=== PATIENT | male | born 1965 | race Caucasian/White ===

== ENCOUNTER 2024-03-31 08:45 | Inpatient (IN) | payer SELFPAY ==
[2024-03-31] VITALS (26 sets, daily range): BP systolic 100–137; BP diastolic 60–87; PULSE 60–96; RESP 11–23; TEMP 36.5–37.1; O2SAT 65–94; BMI 39.1; BMI 42.3
[2024-03-31 09:25] LABS: Coronavirus 19, PCR Not Detected (NotDetected); Influenza A, PCR Not Detected (NotDetected); Influenza B, PCR Not Detected (NotDetected)
[2024-03-31 09:27] LABS: Lactate Venous 1.1 mmol/L (0.4-2.0); VBG Base Excess 11.3 mmol/L (-2.4-2.3); VBG HCO3 36.5 mmol/L (23-30); VBG Oxygen Saturation 61.4 % (50-70); VBG PCO2 62.9 mmol/L (35-51); VBG PH 7.38 mmol/L (7.31-7.41); VBG PO2 30.4 mmol/L (28-40); VBG Total CO2 38.4 mmol/L (23-27)
[2024-03-31 09:31] LABS: Chloride 97 mmol/L (98-107)
[2024-03-31] MEDS: IPRATROPIUM/ALBUTEROL 3 ML NEB IH (09:31)
[2024-03-31 09:32] LABS: Albumin Level 4.1 g/dl (3.5-5.0); Potassium 4.3 mmoL/L (3.5-5.1); Sodium 141 mmol/L (136-145)
[2024-03-31 09:33] LABS: Basophils # 0.1 K/mm3 (0-0.2); Basophils % 0.8 % (0.1-2.0); Eosinophils # 0.2 K/mm3 (0.0-0.4); Eosinophils % 1.8 % (0.1-12.0); Hemoglobin 13.7 g/dL (14.1-18.0); Lymphocytes % 23.3 % (10-50); Mean Corpuscular HGB Conc 31.1 g/dL (31.8-35.4); Mean Corpuscular Hemoglobin 30.5 pg (27.0-31.2); Mean Platelet Volume 10.3 fl (7.4-10.4); Monocytes # 0.9 K/mm3 (0.1-1.0); Monocytes % 11.2 % (1.7-9.3); Neutrophils # 5.2 K/mm3 (1.8-7.8); Neutrophils % 62.5 % (37.0-80.0); Platelet Count 186 K/mm3 (142-424); Red Blood Count 4.49 M/mm3 (4.60-6.20); Red Cell Distribution Width 14.6 % (11.5-17.5); White Blood Count 8.4 K/mm3 (4.8-10.8)
[2024-03-31 09:34] LABS: Blood Urea Nitrogen 21 mg/dl (9-20); Creatinine Clearance Estimated 111 mL/min (50-200); Estimated Glomerular Filt Rate 62 ml/min (>60); GFR (African American) 75 ML/MIN (>60)
[2024-03-31 09:35] LABS: Alanine Aminotransferase 98 U/L (12-78); Albumin/Globulin Ratio 1.2 (1.1-1.8); Alkaline Phosphatase 82 U/L (38-126); Aspartate Amino Transferase 71 U/L (17-59); Bilirubin,Total 0.5 mg/dl (0.2-1.3); Calcium 8.8 mg/dl (8.4-10.2); Globulin 3.3 g/dL (1.3-3.2); Glucose 100 mg/dl (74-100); Total Protein,Serum 7.4 g/dl (6.3-8.2)
--- NOTE | 2024-03-31 09:37 | XR_ITS ---
FINAL REPORT CLINICAL HISTORY: Shortness of breath, hypoxic 87%, wheezing COMPARISON: None FINDINGS: The patient is in lordotic positioning. The heart size is normal. The mediastinum is normal. The lungs are underinflated. There is mild basilar atelectasis. There is no focal infiltrate or edema. There are no pleural effusions. There is no pneumothorax. There is no osseous abnormality. IMPRESSION: Underinflation with mild basilar atelectasis. Reviewed, Interpreted and Dictated by Rony Ochoa MD Transcribed by Cheryl Cruz Authenticated and [facility]
--- NOTE | 2024-03-31 09:37 | PC.NURSE ---
Dr. Herman at bedside
[2024-03-31 09:42] LABS: Anion Gap 11.3 mEq/L (5-15); Carbon Dioxide 37 mmol/L (22.0-30.0)
--- NOTE | 2024-03-31 09:44 | CT_ITS ---
FINAL REPORT TECHNIQUE: Multiple axial CT angiography images were performed from the foramen magnum to the vertex before and during IV contrast administration. This study was performed with techniques to keep radiation doses as low as reasonably achievable (ALARA). Individualized dose reduction techniques using automated exposure control or adjustment of mA and/or kV according to the patient's size were employed. 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 IMPRESSION: No acute intracranial hemorrhage or large acute cortical infarct. No evidence of vascular injury, aneurysm, hemodynamically significant stenosis or major vessel occlusion of the intracranial arterial system. Reviewed, Interpreted and Dictated by Rony Ochoa MD Transcribed by Norma Clayton Authenticated and [facility]
--- NOTE | 2024-03-31 09:44 | CT_ITS ---
FINAL REPORT TECHNIQUE: Axial CT images were performed through the head. Coronal reformatted images were submitted. This study was performed with techniques to keep radiation doses as low as reasonably achievable (ALARA). Individualized dose reduction techniques using automated exposure control or adjustment of mA and/or kV according to the patient's size were employed. CLINICAL HISTORY: resp failure, wheezing, AMS FINDINGS: The ventricles are normal in size. There is no evidence of hemorrhage. There is no mass or edema identified. There is no abnormal extra-axial fluid seen. There is bilateral maxillary sinusitis. Abnormal opacification is seen of the mastoid air cells. There is been prior partial resection of the left mastoid air cells. IMPRESSION: No acute intracranial process. Bilateral maxillary sinusitis and opacification of the mastoid air cells. Reviewed, Interpreted and Dictated by Rony Ochoa MD Transcribed by Norma Clayton Authenticated and [facility]
--- NOTE | 2024-03-31 09:44 | CT_ITS ---
FINAL REPORT TECHNIQUE: Postcontrast axial images of the chest were performed in a CTA protocol. This study was performed with techniques to keep radiation doses as low as reasonably achievable, (ALARA). Individualized dose reduction technique using automated exposure control or adjustment of mA and/or kV according to the patient's size were employed. CLINICAL HISTORY: resp failure, wheezing, AMS FINDINGS: The heart is normal in size. There are multiple small mediastinal lymph nodes measuring up to 1.7 cm. No pleural or pericardial effusion is identified. The thoracic aorta is normal in caliber with no focal aneurysm or dissection identified. Pulmonary arteries are suboptimally opacified. There is no definite filling defect to suggest pulmonary embolism. There is mild dependent edema and atelectasis. And nodule is seen at the superior margin of the left major fissure measuring 9 mm in greatest dimension best seen on image 69 of series 5. IMPRESSION: No evidence for PE on this exam. Dependent edema. Nodule at the left major fissure likely related to fissural lymph node. Reviewed, Interpreted and Dictated by Rony Ochoa MD Transcribed by Norma Clayton Authenticated and [facility]
--- NOTE | 2024-03-31 09:44 | CT_ITS ---
FINAL REPORT TECHNIQUE: NASCET technique utilized for stenosis evaluation. 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 Carotid arteries are codominant. RIGHT CAROTID: No significant stenosis is seen of the cervical common or internal carotid artery. LEFT CAROTID: No significant stenosis seen of the cervical common or internal carotid artery. VERTEBRALS: The vertebrals are patent. No significant stenosis is present. IMPRESSION: No significant arterial abnormality. Reviewed, Interpreted and Dictated by Rony Ochoa MD Transcribed by Norma Clayton Authenticated and [facility]
--- NOTE | 2024-03-31 09:44 | CT_ITS ---
FINAL REPORT TECHNIQUE: Axial images were obtained from skull base to the thoracic inlet by computed tomography. Coronal and sagittal reconstruction process performed. This study was performed with techniques to keep radiation doses as low as reasonably achievable (ALARA). Individualized dose reduction techniques using automated exposure control or adjustment of mA and/or kV according to the patient''s size were employed. 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 There is mild posterior osteophyte formation at C6-7. No significant spinal or neuroforaminal canal stenosis is seen. The disc spaces are preserved. The facets are normally aligned. The soft tissues are unremarkable. IMPRESSION: No acute fracture. Reviewed, Interpreted and Dictated by Rony Ochoa MD Transcribed by Norma Clayton Authenticated and [facility]
[2024-03-31 09:49] LABS: Microscopic, Urine URINE MICROSCOPIC (MICROSCOPIC)
[2024-03-31 10:11] LABS: Ethyl Alcohol < 10 mg/dl (0-10)
[2024-03-31 10:19] LABS: NT Pro Brain Natriuretic Pep. 1070 pg/mL (0-125)
[2024-03-31 10:20] LABS: Appearance,Urine CLEAR (Clear); Bilirubin,Urine Negative (Negative); Blood, Urine Negative (Negative); Color,Urine YELLOW (Yellow); Glucose,Urine (UA) Negative (Negative); Ketones,Urine Negative (Negative); Leukocyte Esterase,Urine Negative (Negative); Nitrate,Urine Negative (Negative); Protein,Urine TRACE (Negative); Specific Gravity, Urine 1.025 (1.005-1.030)
[2024-03-31 10:23] LABS: Troponin I < 0.01 ng/ml (0.00-0.034)
[2024-03-31] MEDS: METHYLPREDNISOLONE SOD SUCC 125MG VIAL 125 MG IV (10:23)
[2024-03-31] MEDS: IPRATROPIUM/ALBUTEROL 3 ML NEB 6 ML IH (10:23)
--- NOTE | 2024-03-31 10:25 | ED_ITS ---
Discharge Plan Disposition Patient Disposition: Admitted Condition: Good Clinical Impressions Clinical Impression: Severe hypothyroidism, Altered mental status, Acute exacerbation of chronic obstructive pulmonary disease Discharge ED Provider: Miriam Herman General Adult HPI General Chief complaint: Shortness of Breath/Dyspnea Stated complaint: disoriented, weakness Time Seen by Provider: 03/31/24 09:00 Mode of Arrival: Family Vehicle Source of Information: Patient and Significant Other Limitations: No Limitations Description of Symptoms (Recalled from ER Triage Doc. by RN): Pt c/o SOA, feeling tired, and cough. He reports he was drinking alcohol and smoking marijuana and has slept all weekend. His SO at bedside states, he didn't even know today was Sunday and he needed to go to work . Pt also states yesterday he was feeling weak and his legs gave out when he was walking tot he bathroom. Pt denies any injury, syncope, or LOC. States he also may have been exsposed to the flu. History of Present Illness HPI narrative: This patient is a 59-year-old male with a history of obesity and prior tobacco use who does not follow regularly with a doctor presenting to the emergency department for disorientation. According to the patient's significant other, they went out Sunday for his birthday and he had been drinking alcohol and smoking some marijuana, but significant other states that it was not a lot. He occasionally does drink and occasionally does smoke marijuana, but he does not have any history of regular or daily abuse. She states that he slept pretty much the whole weekend and had not been eating or drinking very much. She also notes that yesterday, they were sitting down and talking about work today, but he was not even aware that yesterday was Sunday. She states that he is just seemed off and also was having trouble gripping silverware to feed himself. She notes that it was like a child trying to eat and drink. At this time, he denies any concerns or complaints with the exception of having a cough and mild shortness of breath. He denies any fever, headache, vision changes, numbness, tingling, unilateral weakness, chest pain, abdominal pain, nausea, vomiting, changes in bowel movements, urinary symptoms, rashes, or swelling. Related Data Home Medications ?Medication ?Instructions ?Recorded ?Confirmed No Known Home Medications 03/31/24 03/31/24 Allergies Allergy/AdvReac Type Severity Reaction Status Date / Time No Known Allergies Allergy Verified 03/31/24 15:12 [facility] Disclaimer: The information contained in this section may have been updated after the patient was seen, as this information can be updated by other users. Medical History (Updated 03/31/24 @ 16:43 by Yayo Lindquist MD) Hard of hearing No significant past medical history Surgical History History of tonsillectomy and adenoidectomy Family History Other No significant family history Social History Smoking Status: Former smoker alcohol intake: current current occupational status: employed Travel in the last 8 weeks: None ROS Obtained: Yes All systems reviewed & no additional complaints except as documented Physical Exam General General appearance: alert, in no apparent distress and obese Head Head exam: atraumatic and normocephalic Eye Eye exam: Present normal appearance, PERRL and EOMI ENT ENT exam: Present normal exam, normal oropharynx, mucous membranes moist and normal external ear exam Neck Neck exam: Present normal inspection, full ROM and trachea midline; Absent tenderness Chest Chest inspection: Present normal inspection and symmetric chest wall rise; Absent tenderness Respiratory Respiratory exam: Present normal lung sounds bilaterally; Absent respiratory distress, wheezes, stridor or accessory muscle use Cardiovascular Cardiovascular exam: Present regular rate and normal rhythm Abdominal Exam Abdominal exam: Present soft; Absent distention, tenderness or guarding Extremities Exam Extremities exam: Present normal inspection, full ROM and normal capillary refill; Absent tenderness or edema Back Exam Back exam: Present normal inspection and full ROM; Absent tenderness Neurological Exam Neurological exam: Present alert, oriented X3, CN II-XII intact and normal gait; Absent motor sensory deficit Psychiatric Psychiatric exam: Present normal affect and normal mood Skin Skin exam: Present warm and dry Medical Decision Making Medical Records Medical records reviewed: Yes I reviewed the patient's medical records. Screening: Per USPSTF and CDC recommendations, given the prevalence of disease in our region, it is our hospital?s policy to screen for HIV and viral Hepatitis for all patients aged 18 and over and those with ongoing risk factors. Vasu Inquiry Pt receiving controlled substance: No Vital Signs: 03/31/24 08:47 03/31/24 09:30 03/31/24 10:00 Temperature 97.7 F Temperature Source Oral Pulse Rate 63 63 Pulse Rate [Right] 96 H Respiratory Rate 23 Blood Pressure 119/79 116/75 Blood Pressure [Right Arm] 129/78 Blood Pressure Mean Blood Pressure Mean [Right Arm] 95 Blood Pressure Source [Right Arm] Automatic Cuff 02 Sat by Pulse Oximetry 87 L 91 L 93 L Oxygen Delivery Method Room Air Nasal Cannula Nasal Cannula Oxygen Flow Rate (LPM) 2 2 03/31/24 10:32 03/31/24 10:45 03/31/24 11:30 Temperature Temperature Source Pulse Rate 65 67 81 Pulse Rate [Right] Respiratory Rate 15 12 Blood Pressure 100/60 L Blood Pressure [Right Arm] Blood Pressure Mean Blood Pressure Mean [Right Arm] Blood Pressure Source [Right Arm] 02 Sat by Pulse Oximetry 93 L 65 L 94 L Oxygen Delivery Method Aerosol Mask Oxygen Flow Rate (LPM) 03/31/24 12:12 03/31/24 12:31 03/31/24 13:01 Temperature Temperature Source Pulse Rate 70 67 61 Pulse Rate [Right] Respiratory Rate 15 16 12 Blood Pressure 126/71 114/64 124/78 Blood Pressure [Right Arm] Blood Pressure Mean 89 Blood Pressure Mean [Right Arm] Blood Pressure Source [Right Arm] 02 Sat by Pulse Oximetry 91 L 91 L 92 L Oxygen Delivery Method Nasal Cannula Nasal Cannula Oxygen Flow Rate (LPM) 2 2 03/31/24 13:31 03/31/24 14:01 03/31/24 14:31 Temperature Temperature Source Pulse Rate 77 67 62 Pulse Rate [Right] Respiratory Rate 20 14 14 Blood Pressure 131/75 111/86 121/70 Blood Pressure [Right Arm] Blood Pressure Mean Blood Pressure Mean [Right Arm] Blood Pressure Source [Right Arm] 02 Sat by Pulse Oximetry 92 L 91 L 92 L Oxygen Delivery Method Nasal Cannula Nasal Cannula Nasal Cannula Oxygen Flow Rate (LPM) 2 2 2 03/31/24 14:50 03/31/24 14:54 Temperature 98.0 F Temperature Source Pulse Rate 63 62 Pulse Rate [Right] Respiratory Rate 14 Blood Pressure 121/70 Blood Pressure [Right Arm] Blood Pressure Mean Blood Pressure Mean [Right Arm] Blood Pressure Source [Right Arm] 02 Sat by Pulse Oximetry 85 L Oxygen Delivery Method Nasal Cannula Oxygen Flow Rate (LPM) 2 Lab Data Lab results reviewed: Yes I reviewed the patient's lab results. Lab Results 03/31/24 08:53: Urine Color Yellow, Urine Appearance Clear, Urine pH 7.0, Ur Specific [place] 1.025, Urine Protein Trace, Urine Glucose (UA) Negative, Urine Ketones Negative, Urine Blood Negative, Urine Nitrate Negative, Urine Bilirubin Negative, Urine Urobilinogen 1.0, Ur Leukocyte Esterase Negative, Urine RBC Occasional, Urine WBC 3-5, Ur Squamous Epith Cells None, Urine Bacteria Trace, Urine Opiates Screen Negative, Urine Methadone Screen Negative, Ur Barbituates Screen Negative, Ur Phencyclidine Scrn Negative, Ur Amphetamines Screen Negative, U Benzodiazepines Scrn Negative, Urine Cocaine Screen Negative, U Marijuana (THC) Screen Positive H 03/31/24 09:00: WBC 8.4, RBC 4.49 L, Hgb 13.7 L, Hct 44.0, MCV 98.0 H, MCH 30.5, MCHC 31.1 L, RDW 14.6, Plt Count 186, MPV 10.3, Neut % (Auto) 62.5, Lymph % (Auto) 23.3, [place] % (Auto) 11.2 H, Eos % (Auto) 1.8, Baso % (Auto) 0.8, Neut # (Auto) 5.2, Lymph # (Auto) 2.0, [place] # (Auto) 0.9, Eos # (Auto) 0.2, Baso # (Auto) 0.1, VBG pH 7.38, VBG pCO2 62.9 H, VBG pO2 30.4, VBG HCO3 36.5 H, VBG Total CO2 38.4 H, VBG O2 Saturation 61.4, VBG Base Excess 11.3 H, VBG Lactic Acid 1.1, Sodium 141, Potassium 4.3, Chloride 97 L, Carbon Dioxide 37 H, Anion Gap 11.3, BUN 21 H, Creatinine 1.20, Estimated Creat Clear 111, Estimated GFR 62, Est GFR ( Amer) 75, Glucose 100, Calcium 8.8, Total Bilirubin 0.5, A ST 71 H, ALT 98 H, Alkaline Phosphatase 82, Troponin I < 0.01, C-Reactive Protein 106.3 H, NT-Pro-B Natriuret Pep 1070 H, Total Protein 7.4, Albumin 4.1, Globulin 3.3 H, Albumin/Globulin Ratio 1.2, Procalcitonin 0.096, TSH > 100.00 H, Thyroxine (T4) 1.2 L, Plasma/Serum Alcohol < 10, SARS-CoV-2 (PCR) Not detected, HCV Ab ARGENIS w/Rflx PCR Qn Negative, HIV Ag/Ab Combo Qual Negative, Influenza A Untype (PCR) Not detected, Influenza Type B (PCR) Not detected 03/31/24 11:45: Ammonia < 9 L 03/31/24 09:00 03/31/24 09:00 Orders (Tests/Meds): ED MEDICATIONS Generic Name Dose Route Start Last Admin Trade Name Freq PRN Reason Stop Dose Admin Docusate Sodium 100 mg 03/31/24 11:30 03/31/24 12:42 Docusate Sodium 100 Mg Capsule PO 04/30/24 11:29 100 mg DAILY HOLLY Administration Enoxaparin Sodium 40 mg 03/31/24 11:30 03/31/24 12:43 Enoxaparin 40mg/0.4ml Syringe SUBCUT 04/30/24 11:29 40 mg DAILY HOLLY Administration Levothyroxine Sodium 150 mcg 04/01/24 07:00 Levothyroxine Sodium 100 Mcg Vial IV 05/01/24 06:59 DAILYDM HOLLY Non-Formulary Medication 5 mcg 03/31/24 16:45 Liothy PO 04/30/24 16:44 DIRECTED HOLLY Sodium Chloride 10 ml 03/31/24 09:20 Sodium Chloride 0.9% 10ml Flush Syringe IV 04/30/24 09:19 NEEDED PRN Maintain IV Site Discontinued Medications Generic Name Dose Route Start Last Admin Trade Name Freq PRN Reason Stop Dose Admin Albuterol/Ipratropium 3 ml 03/31/24 09:21 03/31/24 09:31 Ipratropium/Albuterol 3 Ml Neb 03/31/24 09:22 3 ml ONCE ONE Administration Albuterol/Ipratropium 6 ml 03/31/24 09:49 03/31/24 10:23 Ipratropium/Albuterol 3 Ml Neb IH 03/31/24 09:50 6 ml ONCE ONE Administration Furosemide 40 mg 03/31/24 15:31 03/31/24 15:48 Furosemide 40mg/4ml Vial IV 03/31/24 15:32 40 mg ONCE ONE Administration Iopamidol 80 ml 03/31/24 11:11 03/31/24 11:14 Iopamidol-370 (76%);100ml Bottle IV 03/31/24 11:12 80 ml ONCE ONE Administration Iopamidol 60 ml 03/31/24 11:12 03/31/24 11:14 Iopamidol-370 (76%);100ml Bottle IV 03/31/24 11:13 60 ml ONCE ONE Administration Levothyroxine Sodium 300 mcg 03/31/24 10:51 03/31/24 11:12 Levothyroxine Sodium 100 Mcg Vial IV 03/31/24 10:52 300 mcg ONCE ONE Administration Methylprednisolone Sodium Succinate 125 mg 03/31/24 09:49 03/31/24 10:23 Methylprednisolone Sod Succ 125mg Vial IV 03/31/24 09:50 125 mg ONCE ONE Administration Sodium Chloride 50 ml 03/31/24 11:11 03/31/24 11:14 0.9 % Sodium Chloride 50 Ml Vial IV 03/31/24 11:12 50 ml ONCE ONE Administration Sodium Chloride 10 ml 03/31/24 11:11 03/31/24 11:14 Sodium Chloride 0.9% 10ml Syr (Rad Only) IV 03/31/24 11:12 10 ml ONCE ONE Administration Sodium Chloride 10 ml 03/31/24 11:12 03/31/24 11:14 Sodium Chloride 0.9% 10ml Syr (Rad Only) IV 04/30/24 11:11 10 ml NEEDED PRN Administration Maintain IV Site ORDERS Category Date Time Status CT angio chest PE protocol Stat Cat Scan 03/31/24 09:[address] angio head Stat Cat Scan 03/31/24 09:[address] angio neck Stat Cat Scan 03/31/24 09:[address] cervical spine wo con Stat Cat Scan 03/31/24 09:[address] head/brain wo con Stat Cat Scan 03/31/24 09:44 Completed CXR --portable [XR chest portable] Stat Exams 03/31/24 09:37 Completed Ammonia Stat Lab 03/31/24 11:45 Completed BNP [NT Pro Brain Natriuretic Pep.] Stat Lab 03/31/24 09:00 Completed CRP [C-Reactive Protein] Stat Lab 03/31/24 09:00 Completed Complete Blood Count Auto Diff AMLAB Lab 04/01/24 06:00 Ordered Complete Blood Count Auto Diff Stat Lab 03/31/24 09:00 Completed Comprehensive Metabolic Panel AMLAB Lab 04/01/24 06:00 Ordered Comprehensive Metabolic Panel Stat Lab 03/31/24 09:00 Completed Ethyl Alcohol Stat Lab 03/31/24 09:00 Completed HIV Combo Stat Lab 03/31/24 09:00 Completed Hepatitis C Ab Qual. W/ RFX Stat Lab 03/31/24 09:00 Completed Magnesium AMLAB Lab 04/01/24 06:00 Ordered Procalcitonin Stat Lab 03/31/24 09:00 Completed Rapid PCR Covid and Flu A/B Stat Lab 03/31/24 09:00 Completed T4 (Thyroxine) Stat Lab 03/31/24 09:00 Completed TSH [Thyroid Stimulating Hormone] Stat Lab 03/31/24 09:00 Completed Triiodothyronine (T3) Free Stat Lab 03/31/24 09:00 Received Triiodothyronine (T3) Total Stat Lab 03/31/24 09:00 Received Trop I [Troponin I] Stat Lab 03/31/24 09:00 Completed Troponin I Q3H Lab 03/31/24 13:20 Completed Troponin I Q3H Lab 03/31/24 15:23 Completed UA [Urinalysis and Microscopic] Stat Lab 03/31/24 08:53 Completed UDS [Drug Screen,Urine] Stat Lab 03/31/24 08:53 Completed Venous Blood Gas Stat RT 03/31/24 09:00 Completed ECG Data Tracing #1: I reviewed this ECG and interpreted as documented below: Normal sinus rhythm with a ventricular rate of [address] changes concerning for ischemia. Normal intervals ECG initial impression date: 03/31/24 ECG initial impression time: 10:48 Medical Decision Narrative: In summary, this patient is a 59-year-old male presenting to the Emergency Department for evaluation of disorientation, excess sleepiness, and cough over the weekend. Differential diagnoses considered include but are not limited to pneumonia, COPD exacerbation, respiratory failure, sepsis, urinary tract infection, substance abuse, substance withdrawal, hepatic encephalopathy, CVA, viral syndrome. Ruling out the most morbid conditions drove assessment. It should be noted patient's history includes obesity, alcohol and marijuana use, prior tobacco use which may or may not be at goal therapy. This complicates all aspects of care by increasing patient's risk for morbidity. On exam, the patient is lying in bed in no acute distress. He did have borderline low oxygen saturation as well as a hacking cough noted. He had wheezing noted bilaterally. He is neurologically intact without focal deficit and is able to answer orientation questions appropriately. He is slow to respond. NIH stroke scale is 0. Workup included broad lab evaluation to evaluate for infectious, metabolic, cardiac causes of any sort of mental status change as well as CT head, CT angiogram head and neck, and CT angiogram PE protocol given respiratory failure and cough. He was given DuoNebs x 3 as well as IV methylprednisolone. I independently interpreted CT scan prior to the radiologist read and noted no obvious large brain bleed, no focal lung consolidation. Please see their read for final interpretation. They note no acute pathology. Labs were obtained that demonstrated reassuring CBC with no significant leukocytosis, very mild anemia this not clinically concerning at this time. Chemistry demonstrates mild hypochloremia, mildly elevated BUN, mild transaminitis. VBG demonstrates CO2 retention without decompensation. He has profound hypothyroidism with a TSH greater than 100 and low T4. On reassessment, patient is sitting upright in no acute distress. For his severe hypothyroidism with concerns for myxedema coma, I did give him 300 mcg of IV levothyroxine. He already received methylprednisolone so I did not give hydrocortisone. He is borderline bradycardic with soft pressures, however he does not require any pressors at this time and is in no acute distress. Ultimately, I feel he would benefit from admission for thyroid repletion in the setting of severe hypothyroidism. I had an interactive discussion with the hospitalist who admitted the patient in stable condition. Critical Care Critical Care Time Critical Care Time: Yes Attestation: On 03/31/24, the high probability of a clinically significant, sudden or life threatening deterioration of the following system(s) required my full and direct attention, intervention and personal management. The time I documented below is in addition to time spent performing reported procedures but includes the following listed in this critical care notation. Total Time Total Critical Care Time: 30
[2024-03-31 10:26] LABS: T4 (Thyroxine) 1.2 ug/dl (5.53-11.0)
[2024-03-31 10:31] LABS: Amphetamine/Metha Screen,Urine Negative ng/ml (<1000); Benzodiazepines Screen,Urine Negative ng/ml (<200)
[2024-03-31 10:32] LABS: Barbiturates Screen,Urine Negative ng/ml (<200)
[2024-03-31 10:33] LABS: Cannabinoid Screen,Urine Positive ng/ml (<50); Cocaine Screen,Urine Negative ng/ml (<300)
[2024-03-31 10:34] LABS: Methadone Screen,Urine Negative ng/ml (<300)
[2024-03-31 10:38] LABS: Opiate Screen,Urine Negative ng/ml (<300); Phencyclidine Screen,Urine Negative ng/ml (<25)
--- NOTE | 2024-03-31 10:45 | ECG_ITS ---
APPROVED REPORT Exam: Resting ECG HR:73 bpm ECG Measurements Heart Rate 73 AXES MD 160 P 55 QRSd 106 QRS 78 QT 414 T 63 QTc 439 Conclusion SINUS RHYTHM WITH SINUS ARRHYTHMIA NONSPECIFIC T-WAVE ABNORMALITY BORDERLINE ECG Electronically signed by : FRANKLIN ALBA, 03/31/2024 17:09:42
[2024-03-31 10:46] LABS: Thyroid Stimulating Hormone > 100.00 uIU/mL (0.465-4.68)
[2024-03-31 10:56] LABS: Bacteria,Urine Trace /lpf; RBC,Urine Occasional #/hpf (0-3)
[2024-03-31] MEDS: LEVOTHYROXINE SODIUM 100 MCG VIAL 300 MCG IV (11:12)
[2024-03-31] MEDS: 0.9 % SODIUM CHLORIDE 50 ML VIAL IV (11:14)
[2024-03-31] MEDS: IOPAMIDOL-370 (76%);100ML BOTTLE 60 ML IV (11:14)
[2024-03-31] MEDS: IOPAMIDOL-370 (76%);100ML BOTTLE 80 ML IV (11:14)
[2024-03-31] MEDS: SODIUM CHLORIDE 0.9% 10ML SYR (RAD ONLY) 10 ML IV ×2 (11:14)
--- NOTE | 2024-03-31 11:24 | EXP.HP ---
History of Present Illness *Admission Date: 03/31/24 *Reason for visit:: Weakness, confusion *History of present illness: Lulu is a 59-year-old male with no significant past medical history. Presented to the ER with complaint of being fatigued all weekend. Sounds like he was celebrating his birthday and was drinking alcohol and smoking marijuana. Slept for more than usual however. Was confused, did not know the day of the week. Extremely weak per her spouse. States he has been more tired over the past month. Denies any betsy syncope, loss of consciousness, nausea or vomiting. On arrival to the ER, negative for fever. Denies any chest pain. Does have oxygen requirement however. Workup showing severe hypothyroid. Medicine consulted for admission and further management. On my evaluation, patient is pleasant and states he feels little better since receiving IV levothyroxine. Tolerating 4 L nasal cannula oxygen at this time to maintain sats in the low 90s. Answering questions slowly but appropriately. Denies any rash, lower extremity edema, GI symptoms, constipation, states he does not see a doctor regularly and is on no medications at this time.. [facility] Disclaimer: The information contained in this section may have been updated after the patient was seen, as this information can be updated by other users. Medical History (Updated 03/31/24 @ 16:43 by Yayo Lindquist MD) Hard of hearing No significant past medical history Surgical History History of tonsillectomy and adenoidectomy Family History Other No significant family history Social History Smoking Status: Former smoker alcohol intake: current current occupational status: employed Travel in the last 8 weeks: None Review of Systems Review of Systems Review of systems (narrative): 14 point review of systems performed, pertinent positives and negatives as per HPI Meds Home Medications and Allergies Home Medications ?Medication ?Instructions ?Recorded ?Confirmed ?Type No Known Home Medications 03/31/24 03/31/24 History New Prescriptions to Start Prescriptions: Allergies Allergy/AdvReac Type Severity Reaction Status Date / Time No Known Allergies Allergy Verified 03/31/24 15:12 Exam Data for Last 24 hours Vital signs and Labs for Last 24 Hours: Temp Pulse Resp BP Pulse Ox O2 Del Method O2 Flow Rate 97.7 F 65 23 100/60 L 93 L Aerosol Mask 2 03/31/24 08:47 03/31/24 10:32 03/31/24 08:47 03/31/24 10:32 03/31/24 10:32 03/31/24 10:32 03/31/24 10:00 Laboratory Results - last 24 hr 03/31/24 08:53: Urine Color Yellow, Urine Appearance Clear, Urine pH 7.0, Ur Specific [place] 1.025, Urine Protein Trace, Urine Glucose (UA) Negative, Urine Ketones Negative, Urine Blood Negative, Urine Nitrate Negative, Urine Bilirubin Negative, Urine Urobilinogen 1.0, Ur Leukocyte Esterase Negative, Urine RBC Occasional, Urine WBC 3-5, Ur Squamous Epith Cells None, Urine Bacteria Trace, Urine Opiates Screen Negative, Urine Methadone Screen Negative, Ur Barbituates Screen Negative, Ur Phencyclidine Scrn Negative, Ur Amphetamines Screen Negative, U Benzodiazepines Scrn Negative, Urine Cocaine Screen Negative, U Marijuana (THC) Screen Positive H 03/31/24 09:00: WBC 8.4, RBC 4.49 L, Hgb 13.7 L, Hct 44.0, MCV 98.0 H, MCH 30.5, MCHC 31.1 L, RDW 14.6, Plt Count 186, MPV 10.3, Neut % (Auto) 62.5, Lymph % (Auto) 23.3, [place] % (Auto) 11.2 H, Eos % (Auto) 1.8, Baso % (Auto) 0.8, Neut # (Auto) 5.2, Lymph # (Auto) 2.0, [place] # (Auto) 0.9, Eos # (Auto) 0.2, Baso # (Auto) 0.1, VBG pH 7.38, VBG pCO2 62.9 H, VBG pO2 30.4, VBG HCO3 36.5 H, VBG Total CO2 38.4 H, VBG O2 Saturation 61.4, VBG Base Excess 11.3 H, VBG Lactic Acid 1.1, Sodium 141, Potassium 4.3, Chloride 97 L, Carbon Dioxide 37 H, Anion Gap 11.3, BUN 21 H, Creatinine 1.20, Estimated Creat Clear 111, Estimated GFR 62, Est GFR ( Amer) 75, Glucose 100, Calcium 8.8, Total Bilirubin 0.5, AST 71 H, ALT 98 H, Alkaline Phosphatase 82, Troponin I < 0.01, NT-Pro-B Natriuret Pep 1070 H, Total Protein 7.4, Albumin 4.1, Globulin 3.3 H, Albumin/Globulin Ratio 1.2, TSH > 100.00 H, Thyroxine (T4) 1.2 L, Plasma/Serum Alcohol < 10, SARS-CoV-2 (PCR) Not detected, Influenza A Untype (PCR) Not detected, Influenza Type B (PCR) Not detected I & O for Last 24 hours: Intake & Output 03/28/24 03/29/24 03/30/24 03/31/24 23:59 23:59 23:59 23:59 Weight 120.202 kg Constitutional Constitutional: no acute distress, morbidly obese, chronically ill appearing and cooperative Comments: Speech slow but alert and oriented x 3 *Routine HEENT Exam Head: Present normocephalic Eye: Present EOMI and PERRL ENT: Present mucous membranes moist *Routine Neck Exam Neck: Present supple; Absent lymphadenopathy *Routine Respiratory Exam Respiratory: Present CTA bilaterally; Absent respiratory distress, rhonchi, wheezes or crackles *Routine Cardiovascular Exam Cardiovascular: Present RRR *Routine Abdominal Exam Abdominal: Present soft and normoactive bowel sounds; Absent tenderness *Routine Rectal Exam Rectal:: deferred *Routine Genitalia Exam Genitalia:: deferred *Routine Extremities Exam Extremities: Absent cyanosis, clubbing or edema *Routine Skin Exam Skin: Present warm; Absent rash *Routine Neurological Exam Neurological: Present alert, oriented X3 and moving all extremities; Absent altered mental status Comments: Patient is fatigued, mildly confused, feeling better since presentation to the ER. Knows who he is and where he is. Does not have a good recollection of history. Assessment and Plan *Assessment and plan (1) Severe hypothyroidism: Status: Acute Category: Medical Code(s): E03.9 - Hypothyroidism, unspecified (2) Altered mental status: Status: Acute Category: Medical Code(s): R41.82 - Altered mental status, unspecified (3) Acute metabolic encephalopathy: Status: Acute Category: Medical Code(s): G93.41 - Metabolic encephalopathy (4) Acute exacerbation of chronic obstructive pulmonary disease: Status: Acute Category: Medical Code(s): J44.1 - Chronic obstructive pulmonary disease with (acute) exacerbation (5) CHF (congestive heart failure): Status: Acute Category: Medical Code(s): I50.9 - Heart failure, unspecified (6) Morbid obesity with BMI of 40.0-44.9, adult: Status: Chronic Category: Medical Code(s): E66.01 - Morbid (severe) obesity due to excess calories; Z68.41 - Body mass index [BMI] 40.0-44.9, adult Plan Mr. Vasquez is a 59-year-old male who presented with confusion and weakness, reports that he slept all weekend. Workup in the ER with confusion and TSH greater than 100. Appears to have severe hypothyroidism. Not quite myxedema as he is maintaining blood pressure, electrolytes are normal, maintaining body temperature. High risk for decompensation however. Discussed case with ER physician, request admission for aggressive management and thyroid hormone replacement along with further workup. I agreed to admit for further care. Admitted to ICU due to risk for decompensation. Problems addressed as follows: Hypothyroid Metabolic encephalopathy -TSH greater than 100, BNP of thousand, liver enzymes normal with bili 0.5, AST and ALT 71 and 98 respectively. Glucose 100. Maintaining body temperature. Normotensive. No signs of anemia with hemoglobin of 13.7. Patient does have unexplained oxygen requirement concerning for CHF versus COPD exacerbation. -Administered Solu-Medrol in the ER. Will hold on further steroids. -Administered 300 mcg IV levothyroxine -Administer liothyronine. Pharmacy ordering. Will administer 20 mcg p.o. once followed by 5 mcg every 8 hours for 3 days until mentation improving. -Free T41.4. Free T3 pending -Slow mentation and confusion likely due to hypothyroid. Patient sleeping excessively. Ammonia level normal. Troponins negative. -Thyroid antibodies pending, ordered anti-TPA and dkpa-qcaputw-ojaocaepyua hormone -A1c pending to evaluate for metabolic disease -Repeat CBC, CMP, magnesium ordered for the morning. - High risk for decompensation. - Thyroid ultrasound obtained showing atrophic thyroid gland. - Per my review of chest imaging, patient has no PE on CTA but does have edema. Given elevated BNP, will order echo. Unexplained oxygen requirement. Patient does have very thick skin on his hands and dark staining due to pain from work. Concerned that it is a poor monitoring. Wean oxygen as tolerated for goal sats greater than 90%. Diuresed x 1 with Lasix 40 mg IV. Further management pending echo results Morbid obesity complicates all aspects of his care Full code Regular diet Lovenox 40 mg subcu daily
--- NOTE | 2024-03-31 12:29 | PC.NURSE ---
Received report from Loree Thompson RN at this time. Room is not available at this time, will call when we are able to bring pt up to floor.
--- NOTE | 2024-03-31 12:33 | PC.NURSE ---
Gave report to Guadalupe Shaw RN in SCU. The room is not ready at this time, but SCU staff will let us know when room is ready & clean
[2024-03-31] MEDS: DOCUSATE SODIUM 100 MG CAPSULE PO (12:42)
[2024-03-31] MEDS: ENOXAPARIN 40MG/0.4ML SYRINGE 40 MG SUBCUT (12:43)
[2024-03-31 12:46] LABS: Ammonia < 9 umol/L (9-30)
[2024-03-31 13:19] LABS: C-Reactive Protein 106.3 mg/L (0-4)
[2024-03-31 13:37] LABS: Procalcitonin 0.096 ng/mL (0.0-2.0)
[2024-03-31 13:40] LABS: HIV Combo NEGATIVE (Negative)
[2024-03-31 13:48] LABS: Hepatitis C Ab Qual. W/ RFX NEGATIVE (Negative)
[2024-03-31 14:55] LABS: Troponin I < 0.01 ng/ml (0.00-0.034)
--- NOTE | 2024-03-31 15:18 | CA_ITS ---
APPROVED REPORT EXAM: Comprehensive 2D, Doppler, and color-flow Echocardiogram Engineering Scientist: Kate Velázquez CRT Ht: 5 ft 9 in Wt: 265lbs BSA: 2.33 BP: 100/60 mmHg Indications: COPD, Obesity, alcohol use and marijuana use, hypothyroidism 2D Dimensions LA Volume 27.90 mL LA Volume Index 11.70 mL/m2 (M/F) 16-34 M-Mode Dimensions RVDd 2.77 cm (0.9-2.6) LA Diam 3.95 cm (1.9-4.0) LVDd 4.47 cm (3.5-5.7) LVDs 2.42 cm (3.5-5.7) IVSd 1.59 cm (0.6-1.1) PWd 0.95 cm (0.6-1.1) EF (Teich) 77.40% FS 45.90% EDV (Teich) 91.00 mL TAPSE 2.15 (<1.7) ESV (Teich) 20.60 mL LV Diastology E Decel Time 150 (160-240 msec) E/A Ratio 1.15 MED A' 13.60 cm/s LAT A' 8.30 cm/s Aortic Valve AO Peak GR. 4.20 mmHg Mitral Valve MV E Max Barrett. 73.0 (40-130 cm/s) MV A Velocity 64.0 (40-130 cm/s) E/A Ratio 1.15 MV PHT 44.0 ms Pulmonary Valve PV Peak Velocity 93.0 (50-150 cm/s) Tricuspid Valve TR P. Velocity 195.00 cm/s RAP Estimate 10.00 mmHg RVSP 25.20 mmHg Left Ventricle The left ventricle is normal size. The left ventricular systolic function is normal. The left ventricular ejection fraction is within the normal range. There is normal left ventricular wall thickness. There is normal LV segmental wall motion. The left ventricular diastolic function is normal. LVEF is 55%. Right Ventricle Right ventricle is mildly dilated. The right ventricular systolic function is normal. Atria The left atrium is mildly dilated. The right atrium size is normal. There is no color Doppler evidence of interatrial shunt. Aortic Valve The aortic valve is mildly thickened. There is no aortic valvular stenosis. Trace aortic regurgitation. Mitral Valve The mitral valve is mildly thickened. No evidence of mitral valve stenosis. Trace mitral regurgitation. Tricuspid Valve Tricuspid valve is grossly normal in structure and function. Trace tricuspid regurgitation. There is insufficient TR jet to estimate RVSP. Pulmonic Valve The pulmonary valve is normal in structure. Trace pulmonic regurgitation. Great Vessels The aortic root is normal in size. The ascending aorta is not well-visualized. IVC is normal in size and collapses >50% with inspiration. Pericardium There is no pericardial effusion. Other Information Study Quality: Fair Conclusion Normal biventricular systolic function. Mild RV dilation. Mild LA dilation. No significant valvular stenosis or regurgitation Electronically signed by : Sharmila Artis MD 04/01/2024 10:23:15
--- NOTE | 2024-03-31 15:31 | US_ITS ---
PROCEDURE INFORMATION: Exam: US Soft Tissue Head and Neck, Thyroid Exam date and time: 03/31/2024 3:43 PM Age: 59 years old Clinical indication: Condition or disease; Thyroid disorder; Other: Hypothyroidism; Additional info: Myxedema, hypothyroid TECHNIQUE: Imaging protocol: Real-time ultrasound scan of the neck with image documentation. Exam focused on the thyroid. COMPARISON: CT ANGIO NECK 03/31/2024 10:59 AM FINDINGS: Right thyroid lobe: Atrophic and multinodular with diffusely heterogeneous echotexture. No discrete nodules. No hyperemia. Left thyroid lobe: Atrophic and multinodular with diffusely heterogeneous echotexture. No discrete nodules. No hyperemia. Isthmus: Unremarkable. IMPRESSION: Atrophic thyroid gland.
[2024-03-31] MEDS: FUROSEMIDE 40MG/4ML VIAL 40 MG IV (15:48)
[2024-03-31 16:07] LABS: Troponin I < 0.01 ng/ml (0.00-0.034)
[2024-04-01] VITALS (45 sets, daily range): BP systolic 103–139; BP diastolic 52–88; PULSE 55–85; RESP 9–21; TEMP 36.4–36.7; O2SAT 88–99; BMI 42.1
--- NOTE | 2024-04-01 00:22 | PC.NURSE ---
With with frequent desats into 70% while currently on 5LNC. Apnea and snoring noted. Call made to provider, new order received for CPAP while patient sleeping. Respiratory notified. Pt agreeable to cpap, and tolerating well at this time.
[2024-04-01 06:49] LABS: Basophils % 0.5 % (0.1-2.0); Eosinophils % 0.1 % (0.1-12.0); Hemoglobin 13.5 g/dL (14.1-18.0); Lymphocytes # 2.1 K/mm3 (0.7-4.5); Lymphocytes % 25.6 % (10-50); Mean Corpuscular HGB Conc 32.1 g/dL (31.8-35.4); Mean Corpuscular Hemoglobin 30.9 pg (27.0-31.2); Mean Corpuscular Volume 96.1 fl (80-94); Mean Platelet Volume 10.4 fl (7.4-10.4); Monocytes # 0.8 K/mm3 (0.1-1.0); Neutrophils # 5.1 K/mm3 (1.8-7.8); Neutrophils % 62.6 % (37.0-80.0); Platelet Count 190 K/mm3 (142-424); Red Blood Count 4.37 M/mm3 (4.60-6.20); Red Cell Distribution Width 14.7 % (11.5-17.5); White Blood Count 8.1 K/mm3 (4.8-10.8)
[2024-04-01 07:04] LABS: Alanine Aminotransferase 77 U/L (12-78); Albumin Level 3.9 g/dl (3.5-5.0); Albumin/Globulin Ratio 1.2 (1.1-1.8); Alkaline Phosphatase 80 U/L (38-126); Anion Gap 9.1 mEq/L (5-15); Aspartate Amino Transferase 50 U/L (17-59); Bilirubin,Total 0.3 mg/dl (0.2-1.3); Blood Urea Nitrogen 23 mg/dl (9-20); Calcium 8.6 mg/dl (8.4-10.2); Carbon Dioxide 40 mmol/L (22.0-30.0); Chloride 94 mmol/L (98-107); Creatinine Clearance Estimated 63 mL/min (50-200); Estimated Glomerular Filt Rate 62 ml/min (>60); GFR (African American) 75 ML/MIN (>60); Globulin 3.2 g/dL (1.3-3.2); Glucose 110 mg/dl (74-100); Magnesium 2.1 mg/dl (1.6-2.3); Potassium 4.1 mmoL/L (3.5-5.1); Sodium 139 mmol/L (136-145); Total Protein,Serum 7.1 g/dl (6.3-8.2)
[2024-04-01] MEDS: LEVOTHYROXINE SODIUM 100 MCG VIAL 150 MCG IV (07:07)
[2024-04-01 08:12] LABS: POC Glucose,Bedside 102 (70-110)
[2024-04-01 08:12] LABS: POC Glucose,Bedside 134 (70-110)
[2024-04-01 08:12] LABS: POC Glucose,Bedside 156 (70-110)
--- NOTE | 2024-04-01 08:24 | P.PN_ITS ---
Subjective *Date: 04/01/24 *Time: 10:28 Interval history: Patient denies any chest pain. Denies feeling short of breath however he is on 5 L on initial rounds. Pulse ox placed on here and had instant improvement in saturations. Weaned to 2 L while on rounds with stability and saturations in the low 90s. Has minimal cough. Wheeze on exam. No nausea or vomiting. Tolerating p.o. intake. Alert and oriented x 3. Some improvement mentation today compared to yesterday on presentation. Wore CPAP overnight due to sleep apnea. Medical Exam Vital signs and Labs for Last 24 Hours: Vital Signs Temp Pulse Pulse Resp BP BP Pulse Ox 04/01/24 08:01 130/80 04/01/24 08:01 75 11 L 90 L 04/01/24 08:00 97.7 F 73 14 130/80 90 L 04/01/24 07:45 79 13 91 L 04/01/24 07:30 71 13 90 L 04/01/24 07:15 79 13 91 L 04/01/24 07:00 60 12 109/70 L 89 L 04/01/24 07:00 04/01/24 06:00 61 12 122/88 92 L 04/01/24 05:00 63 132/86 95 04/01/24 04:00 55 L 14 124/83 91 L 04/01/24 04:00 60 04/01/24 04:00 04/01/24 04:00 98.0 F 04/01/24 03:00 58 L 10 L 103/60 L 90 L 04/01/24 02:00 73 21 139/87 89 L 04/01/24 01:00 55 L 13 127/79 94 L 04/01/24 00:27 92 L 04/01/24 00:27 04/01/24 00:00 66 04/01/24 00:00 66 13 103/62 L 90 L 03/31/24 23:00 78 15 123/75 89 L 03/31/24 23:00 03/31/24 22:00 78 14 112/87 91 L 03/31/24 21:00 79 14 137/81 90 L 03/31/24 21:00 98.0 F 03/31/24 20:00 79 19 133/76 90 L 03/31/24 20:00 78 03/31/24 19:00 81 11 L 119/80 91 L 03/31/24 19:00 79 16 119/80 94 L 03/31/24 19:00 79 16 119/80 91 L 03/31/24 19:00 03/31/24 18:00 75 16 115/62 92 L 03/31/24 18:00 75 16 115/82 92 L 03/31/24 17:08 03/31/24 17:00 66 11 L 121/78 91 L 03/31/24 17:00 121/78 03/31/24 17:00 98.7 F 03/31/24 16:49 92 L 03/31/24 16:45 69 16 135/84 92 L 03/31/24 16:00 60 03/31/24 15:42 97.9 F 67 18 136/82 92 L 03/31/24 15:00 03/31/24 15:00 92 L 03/31/24 14:54 98.0 F 62 14 121/70 03/31/24 14:50 63 85 L 03/31/24 14:31 62 14 121/70 92 L 03/31/24 14:01 67 14 111/86 91 L 03/31/24 13:31 77 20 131/75 92 L 03/31/24 13:01 61 12 124/78 92 L 03/31/24 12:31 67 16 114/64 91 L 03/31/24 12:12 70 15 126/71 91 L 03/31/24 11:30 81 12 94 L 03/31/24 10:45 67 15 65 L 03/31/24 10:32 65 100/60 L 93 L 03/31/24 10:00 63 116/75 93 L 03/31/24 09:30 63 119/79 91 L 03/31/24 08:47 97.7 F 96 H 23 129/78 87 L O2 Del Method O2 Flow Rate FiO2 04/01/24 08:01 04/01/24 08:01 04/01/24 08:00 Nasal Cannula 04/01/24 07:45 04/01/24 07:30 04/01/24 07:15 04/01/24 07:00 Nasal Cannula 5 04/01/24 07:00 Nasal Cannula 5 04/01/24 06:00 Nasal Cannula 5 04/01/24 05:00 CPAP 04/01/24 04:00 CPAP 04/01/24 04:00 04/01/24 04:00 CPAP 04/01/24 04:00 04/01/24 03:00 Nasal Cannula 5 04/01/24 02:00 Nasal Cannula 5 04/01/24 01:00 CPAP 04/01/24 00:27 CPAP 40 04/01/24 00:27 40 04/01/24 00:00 04/01/24 00:00 Nasal Cannula 5 03/31/24 23:00 Nasal Cannula 5 03/31/24 23:00 Nasal Cannula 5 03/31/24 22:00 Nasal Cannula 5 03/31/24 21:00 Nasal Cannula 5 03/31/24 21:00 03/31/24 20:00 Nasal Cannula 5 03/31/24 20:00 03/31/24 19:00 Nasal Cannula 5 03/31/24 19:00 Nasal Cannula 5 03/31/24 19:00 Nasal Cannula 5 03/31/24 19:00 Nasal Cannula 5 03/31/24 18:00 Nasal Cannula 5 03/31/24 18:00 Nasal Cannula 5 03/31/24 17:08 Nasal Cannula 5 03/31/24 17:00 03/31/24 17:00 03/31/24 17:00 03/31/24 16:49 Nasal Cannula 5 03/31/24 16:45 Nasal Cannula 5 03/31/24 16:00 03/31/24 15:42 Nasal Cannula 5 03/31/24 15:00 Nasal Cannula 5 03/31/24 15:00 Nasal Cannula 5 03/31/24 14:54 Nasal Cannula 2 03/31/24 14:50 03/31/24 14:31 Nasal Cannula 2 03/31/24 14:01 Nasal Cannula 2 03/31/24 13:31 Nasal Cannula 2 03/31/24 13:01 Nasal Cannula 2 03/31/24 12:31 Nasal Cannula 2 03/31/24 12:12 03/31/24 11:30 03/31/24 10:45 03/31/24 10:32 Aerosol Mask 03/31/24 10:00 Nasal Cannula 2 03/31/24 09:30 Nasal Cannula 2 03/31/24 08:47 Room Air Intake and Output 03/31/24 04/01/24 04/01/24 23:59 07:59 15:59 Intake Total 980 / 980 510 / 510 Output Total 1700 / 1700 300 / 300 Balance -720 / -720 210 / 210 Intake: Intake, Oral Amount 980 / 980 510 / 510 Output: Output, Urine Amount 1700 / 1700 300 / 300 Other: Weight 129 kg Patient Weight 04/01/24 23:59 Weight 129 kg Laboratory Results - last 24 hr 03/31/24 08:53: Urine Color Yellow, Urine Appearance Clear, Urine pH 7.0, Ur Specific [place] 1.025, Urine Protein Trace, Urine Glucose (UA) Negative, Urine Ketones Negative, Urine Blood Negative, Urine Nitrate Negative, Urine Bilirubin Negative, Urine Urobilinogen 1.0, Ur Leukocyte Esterase Negative, Urine RBC Occasional, Urine WBC 3-5, Ur Squamous Epith Cells None, Urine Bacteria Trace, Urine Opiates Screen Negative, Urine Methadone Screen Negative, Ur Barbituates Screen Negative, Ur Phencyclidine Scrn Negative, Ur Amphetamines Screen Negative, U Benzodiazepines Scrn Negative, Urine Cocaine Screen Negative, U Marijuana (THC) Screen Positive H 03/31/24 09:00: WBC 8.4, RBC 4.49 L, Hgb 13.7 L, Hct 44.0, MCV 98.0 H, MCH 30.5, MCHC 31.1 L, RDW 14.6, Plt Count 186, MPV 10.3, Neut % (Auto) 62.5, Lymph % (Auto) 23.3, [place] % (Auto) 11.2 H, Eos % (Auto) 1.8, Baso % (Auto) 0.8, Neut # (Auto) 5.2, Lymph # (Auto) 2.0, [place] # (Auto) 0.9, Eos # (Auto) 0.2, Baso # (Auto) 0.1, VBG pH 7.38, VBG pCO2 62.9 H, VBG pO2 30.4, VBG HCO3 36.5 H, VBG Total CO2 38.4 H, VBG O2 Saturation 61.4, VBG Base Excess 11.3 H, VBG Lactic Acid 1.1, Sodium 141, Potassium 4.3, Chloride 97 L, Carbon Dioxide 37 H, Anion Gap 11.3, BUN 21 H, Creatinine 1.20, Estimated Creat Clear 111, Estimated GFR 62, Est GFR ( Amer) 75, Glucose 100, Calcium 8.8, Total Bilirubin 0.5, AST 71 H, ALT 98 H, Alkaline Phosphatase 82, Troponin I < 0.01, C-Reactive Protein 106.3 H, NT-Pro-B Natriuret Pep 1070 H, Total Protein 7.4, Albumin 4.1, Globulin 3.3 H, Albumin/Globulin Ratio 1.2, Procalcitonin 0.096, TSH > 100.00 H, Thyroxine (T4) 1.2 L, Plasma/Serum Alcohol < 10, SARS-CoV-2 (PCR) Not detected, HCV Ab ARGENIS w/Rflx PCR Qn Negative, HIV Ag/Ab Combo Qual Negative, Influenza A Untype (PCR) Not detected, Influenza Type B (PCR) Not detected 03/31/24 11:45: Ammonia < 9 L 03/31/24 13:20: Troponin I < 0.01 03/31/24 15:23: Troponin I < 0.01 03/31/24 16:42: POC Glucose 156 H 03/31/24 22:02: POC Glucose 134 H 04/01/24 05:23: WBC 8.1, RBC 4.37 L, Hgb 13.5 L, Hct 42.0, MCV 96.1 H, MCH 30.9, MCHC 32.1, RDW 14.7, Plt Count 190, MPV 10.4, Neut % (Auto) 62.6, Lymph % (Auto) 25.6, [place] % (Auto) 10.0 H, Eos % (Auto) 0.1, Baso % (Auto) 0.5, Neut # (Auto) 5.1, Lymph # (Auto) 2.1, [place] # (Auto) 0.8, Eos # (Auto) 0.0, Baso # (Auto) 0.0, Sodium 139, Potassium 4.1, Chloride 94 L, Carbon Dioxide 40 H, Anion Gap 9.1, BUN 23 H, Creatinine 1.20, Estimated Creat Clear 63, Estimated GFR 62, Est GFR ( Amer) 75, Glucose 110 H, Calcium 8.6, Magnesium 2.1, Total Bilirubin 0.3, AST 50 D, ALT 77, Alkaline Phosphatase 80, Total Protein 7.1, Albumin 3.9, Globulin 3.2, Albumin/Globulin Ratio 1.2 04/01/24 06:56: POC Glucose 102 I & O for Labs for Last 24 Hours: Intake & Output 03/29/24 03/30/24 03/31/24 04/01/24 23:59 23:59 23:59 23:59 Intake Total 980 / 980 510 / 510 Output Total 1700 / 1700 300 / 300 Balance -720 / -720 210 / 210 Weight 129.416 kg 129 kg Constitutional: Present no acute distress, morbidly obese and cooperative Head: Present atraumatic and normocephalic ENT: Present normal exam Neck: Present normal inspection Comment:: Thick neck Respiratory: Present wheezes (Minimal end expiratory) and normal respiratory effort; Absent rhonchi or crackles Cardiac: Present Reg Rate and Rhythm GI: Present soft and normal bowel sounds; Absent distention or tenderness Extremities: Present normal inspection and full ROM Skin: Present intact; Absent erythema Neuro: Present Grossly Intact, alert, awake, oriented x 3 and moves all extremities Assessment and Plan *Assessment and plan (1) Severe hypothyroidism: Status: Acute Category: Medical Code(s): E03.9 - Hypothyroidism, unspecified (2) Altered mental status: Status: Acute Category: Medical Code(s): R41.82 - Altered mental status, unspecified (3) Acute metabolic encephalopathy: Status: Acute Category: Medical Code(s): G93.41 - Metabolic encephalopathy (4) Acute exacerbation of chronic obstructive pulmonary disease: Status: Acute Category: Medical Code(s): J44.1 - Chronic obstructive pulmonary disease with (acute) exacerbation (5) CHF (congestive heart failure): Status: Acute Category: Medical Code(s): I50.9 - Heart failure, unspecified (6) Morbid obesity with BMI of 40.0-44.9, adult: Status: Chronic Category: Medical Code(s): E66.01 - Morbid (severe) obesity due to excess calories; Z68.41 - Body mass index [BMI] 40.0-44.9, adult Plan Mr. Vasquez is a 59-year-old male who presented with confusion and weakness, reports that he slept all weekend. Workup in the ER with confusion and TSH greater than 100. Appears to have severe hypothyroidism. Not quite myxedema as he is maintaining blood pressure, electrolytes are normal, maintaining body temperature. High risk for decompensation however. Discussed case with ER physician, request admission for aggressive management and thyroid hormone replacement along with further workup. I agreed to admit for further care. Patient doing well overnight. Will de-escalate to stepdown level of care. Increased oxygen requirement overnight needed CPAP, suspect he has undiagnosed sleep apnea. Weaning oxygen today. More alert and oriented. at bedside feels he is doing somewhat better. Problems addressed as follows: Hypothyroid Metabolic encephalopathy -TSH greater than 100, BNP of 1000, liver enzymes normal with bili 0.5, AST and ALT 71 and 98 respectively. Glucose 100. Maintaining body temperature. Normotensive. No signs of anemia with hemoglobin of 13.7. Patient does have unexplained oxygen requirement concerning for CHF versus COPD exacerbation. - Continue IV levothyroxine 150 mcg daily today and tomorrow. Then transition to oral levothyroxine -Administer liothyronine. Pharmacy ordering. Will administer 20 mcg p.o. once followed by 5 mcg every 8 hours for 3 days until mentation improving. -Free T4 1.2. Free T3 pending -Show exam improvement in mentation. -Thyroid antibodies pending, ordered anti-TPA and pfae-czchdmk-rqefuriqqzg hormone -A1c normal at 5.8, discontinue fingerstick glucose. -Repeat CBC, CMP, magnesium ordered for the morning. - High risk for decompensation. - Thyroid ultrasound obtained showing atrophic thyroid gland. Given elevated BNP, will order echo. Unexplained oxygen requirement. Patient does have very thick skin on his hands and dark staining due to pain from work. Concerned that it is a poor monitoring. Wean oxygen as tolerated for goal sats greater than 90%, currently on 2 L. Comprehensive respiratory panel pending. DuoNebs every 6 hours scheduled - Diuresed x 1 with Lasix 40 mg IV. Repeat dose of diuretic today with Bumex 1 mg once. Formal echo read pending. Preliminary appears relatively normal with preserved EF. Will need sleep study after discharge to evaluate for sleep apnea. Continue CPAP while admitted Morbid obesity complicates all aspects of his care Full code Regular diet Lovenox 40 mg subcu daily
[2024-04-01] MEDS: ENOXAPARIN 40MG/0.4ML SYRINGE 40 MG SUBCUT ×2 (08:39→20:33)
[2024-04-01] MEDS: DOCUSATE SODIUM 100 MG CAPSULE PO (08:39)
[2024-04-01] MEDS: BUMETANIDE 1MG/4ML VIAL 1 MG IV (08:40)
[2024-04-01 09:15] LABS: Hemoglobin A1C 5.8 % (4.0-6.0)
[2024-04-01] MEDS: IPRATROPIUM/ALBUTEROL 3 ML NEB IH ×3 (09:40→18:34)
[2024-04-01 09:53] LABS: Adenovirus,PCR Not Detected (NotDetected); Bordetella Pertussis Not Detected (NotDetected); Chlamydophila Pneumoniae, PCR Not Detected (NotDetected); Coronavirus 19, PCR Not Detected (NotDetected); Coronavirus 229E Not Detected (NotDetected); Coronavirus NL63 Not Detected (NotDetected); Coronavirus OC43 Not Detected (NotDetected); Coronovirus HKU1,PCR Not Detected (NotDetected); Human Metapneumovirus Not Detected (NotDetected); Influenza A, PCR Not Detected (NotDetected); Influenza AH1, 2009 Not Detected (NotDetected); Influenza AH1, PCR Not Detected (NotDetected); Influenza AH3,PCR Not Detected (NotDetected); Influenza B, PCR Not Detected (NotDetected); Mycoplasma Pneumoniae, PCR Not Detected (NotDetected); Parainfluenza 1, PCR Not Detected (NotDetected); Parainfluenza 2, PCR Not Detected (NotDetected); Parainfluenza 3, PCR Not Detected (NotDetected); Parainfluenza 4, PCR Not Detected (NotDetected); Respiratory Syncytial Virus Not Detected (NotDetected); Rhinovirus/Enterovirus Not Detected (NotDetected)
[2024-04-01] MEDS: LIOTHYRONINE 5 MCG 4 EACH PO (12:09)
[2024-04-01 13:08] LABS: Triiodothyronine (T3) Free 0.8 pg/mL (2.0-4.4); Triiodothyronine (T3) Total <20 ng/dL (71-180)
--- NOTE | 2024-04-01 17:59 | PC.NURSE ---
Patient requiring cpap while sleep as oxygen saturations drop to 86%. NSR on monitor. Lung sounds diminished.
[2024-04-01] MEDS: LIOTHYRONINE 5 MCG 1 EACH PO (18:55)
[2024-04-02] VITALS (26 sets, daily range): BP systolic 95–133; BP diastolic 57–88; PULSE 56–84; RESP 10–20; TEMP 36.4–36.9; O2SAT 83–97; BMI 38.2
[2024-04-02] MEDS: IPRATROPIUM/ALBUTEROL 3 ML NEB IH ×5 (00:01→23:57)
[2024-04-02] MEDS: LIOTHYRONINE 5 MCG 1 EACH PO ×3 (03:43→20:32)
[2024-04-02 06:24] LABS: Alanine Aminotransferase 61 U/L (12-78); Albumin Level 3.8 g/dl (3.5-5.0); Albumin/Globulin Ratio 1.3 (1.1-1.8); Alkaline Phosphatase 67 U/L (38-126); Anion Gap 8.7 mEq/L (5-15); Aspartate Amino Transferase 42 U/L (17-59); Bilirubin,Total 0.2 mg/dl (0.2-1.3); Blood Urea Nitrogen 27 mg/dl (9-20); Calcium 8.4 mg/dl (8.4-10.2); Carbon Dioxide 39 mmol/L (22.0-30.0); Chloride 94 mmol/L (98-107); Creatinine Clearance Estimated 118 mL/min (50-200); Estimated Glomerular Filt Rate 68 ml/min (>60); GFR (African American) 83 ML/MIN (>60); Glucose 111 mg/dl (74-100); Magnesium 2.1 mg/dl (1.6-2.3); Potassium 3.7 mmoL/L (3.5-5.1); Sodium 138 mmol/L (136-145); Total Protein,Serum 6.8 g/dl (6.3-8.2)
[2024-04-02 06:46] LABS: Basophils # 0.1 K/mm3 (0-0.2); Eosinophils # 0.2 K/mm3 (0.0-0.4); Eosinophils % 2.3 % (0.1-12.0); Hematocrit 43.2 % (42.0-52.0); Hemoglobin 13.7 g/dL (14.1-18.0); Lymphocytes # 2.3 K/mm3 (0.7-4.5); Lymphocytes % 29.3 % (10-50); Mean Corpuscular HGB Conc 31.7 g/dL (31.8-35.4); Mean Corpuscular Hemoglobin 31.1 pg (27.0-31.2); Mean Corpuscular Volume 98.2 fl (80-94); Monocytes # 0.8 K/mm3 (0.1-1.0); Monocytes % 9.8 % (1.7-9.3); Neutrophils # 4.5 K/mm3 (1.8-7.8); Neutrophils % 56.8 % (37.0-80.0); Platelet Count 198 K/mm3 (142-424); White Blood Count 7.9 K/mm3 (4.8-10.8)
--- NOTE | 2024-04-02 09:38 | EXP.PULM.CON ---
History of Present Illness History of present illness: Mr. 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 [facility] Disclaimer: The information contained in this section may have been updated after the patient was seen, as this information can be updated by other users. Medical History (Updated 04/02/24 @ 15:08 by Shey Carrasquillo MD) Smoking greater than 30 pack years Nocturnal hypoxemia due to obesity Hard of hearing No significant past medical history Surgical History History of tonsillectomy and adenoidectomy Family History Other No significant family history Social History (Updated 03/31/24 @ 16:51 by Miriam Herman DO) Smoking Status: Former smoker alcohol intake: current current occupational status: employed Travel in the last 8 weeks: None Have you lived/traveled outside [place] in past 30 days?: No Contact w/someone who lives/traveled outside US past 30 days?: No Exposure to someone with infectious disease in past 14 days?: No Do you have a fever (greater than 100.4 F or 38 C)?: No Have you tested positive for COVID-19: No Exposed to someone with COVID-19 in past 14 days?: No Do you have a sore throat?: No Do you have a cough?: No Do you have any weakness?: Yes Do you have any diarrhea?: No Are you experiencing any unusual bleeding?: No Do you have any muscle aches/pain?: No Do you have any abdominal pain?: No Are you experiencing loss of taste or smell?: No Review of Systems Constitutional Constitutional: Reports anorexia, Reports body ache(s), Reports fatigue and Reports snoring Eyes Eyes: Denies eye discharge, Denies dry eyes, Denies irritation and Denies itchy eyes ENT Ears, Nose, Mouth, and Throat: Reports abnormal hearing, Denies epistaxis, Denies facial pain, Denies lip swelling and Denies throat swelling *Cardiovascular Cardiovascular: Reports dyspnea and Reports dyspnea on exertion *Respiratory Respiratory: Denies change in phlegm color, Reports chest congestion, Reports cough, Reports dyspnea, Reports dyspnea on exertion, Denies excessive phlegm production, Reports snoring and Reports stridor *Gastrointestinal Gastrointestinal: Denies abdominal pain, Denies belching and Denies cramping *Musculoskeletal Musculoskeletal: Reports back pain, Reports myalgias and Reports other (No small joint swelling or Pain) *Neurologic Neurologic: Reports abnormal hearing Psychiatric Psychiatric: Denies homicidal ideation and Denies suicidal ideation Endocrine Endocrine: Reports fatigue and Denies heat intolerance Hematologic/Lymphatic Hematologic/Lymphatic: Denies easy bleeding and Denies lymphadenopathy Allergic/Immunologic Allergic/Immunologic: Denies itchy eyes, Denies lip swelling and Denies throat swelling Pulmonology Exam Inpatient Vital signs and Labs for Last 24 Hours: Temp Pulse Resp BP Pulse Ox O2 Del Method O2 Flow Rate 98.1 F 70 13 115/76 90 L Nasal Cannula 2 04/02/24 07:56 04/02/24 08:00 04/02/24 08:00 04/02/24 08:00 04/02/24 08:08 04/02/24 08:08 04/02/24 08:08 FiO2 40 04/01/24 00:27 Laboratory Results - last 24 hr 03/31/24 09:00: Free T3 0.8 L, Total T3 <20 L, Chlamy pneumoniae PCR Not detected, Adenovirus (PCR) Not detected, B. pertussis DNA (PCR) Not detected, Coronavirus OC43 (PCR) Not detected, Coronavirus HKU1 (PCR) Not detected, Coronavirus 229E (PCR) Not detected, SARS-CoV-2 (PCR) Not detected, Coronavirus NL63 (PCR) Not detected, Human Metapneumovir PCR Not detected, Influenza A (H1) PCR Not detected, Influ A (H1N1/09) PCR Not detected, Influenza A (H3) PCR Not detected, Influenza Type A (PCR) Not detected, Influenza Type B (PCR) Not detected, M. pneumoniae (PCR) Not detected, Parainfluenza 1 (PCR) Not detected, Parainfluenza 2 (PCR) Not detected, Parainfluenza 3 (PCR) Not detected, Parainfluenza 4 (PCR) Not detected, RSV (PCR) Not detected, Entero/Rhino (PCR) Not detected 04/02/24 05:34: WBC 7.9, RBC 4.40 L, Hgb 13.7 L, Hct 43.2, MCV 98.2 H, MCH 31.1, MCHC 31.7 L, RDW 15.0, Plt Count 198, MPV 10.0, Neut % (Auto) 56.8, Lymph % (Auto) 29.3, [place] % (Auto) 9.8 H, Eos % (Auto) 2.3, Baso % (Auto) 1.0, Neut # (Auto) 4.5, Lymph # (Auto) 2.3, [place] # (Auto) 0.8, Eos # (Auto) 0.2, Baso # (Auto) 0.1, Sodium 138, Potassium 3.7, Chloride 94 L, Carbon Dioxide 39 H, Anion Gap 8.7, BUN 27 H, Creatinine 1.10, Estimated Creat Clear 118, Estimated GFR 68, Est GFR ( Amer) 83, Glucose 111 H, Calcium 8.4, Magnesium 2.1, Total Bilirubin 0.2, AST 42, ALT 61, Alkaline Phosphatase 67, Total Protein 6.8, Albumin 3.8, Globulin 3.0, Albumin/Globulin Ratio 1.3 I & O for Labs for Last 24 Hours: Intake & Output 03/30/24 03/31/24 04/01/24 04/02/24 23:59 23:59 23:59 23:59 Intake Total 980 / 980 1550 / 2050 835 / 835 Output Total 1700 / 1700 900 / 900 400 / 400 Balance -720 / -720 650 / 1150 435 / 435 Weight 285 lb 5 oz 284 lb 6.341 oz 257 lb 15.053 oz Constitutional: Present moderate distress Head: Present normocephalic and atraumatic ENT: Present normal exam, normal oropharynx and mucous membranes moist Neck: Present normal inspection and full ROM Respiratory: Present respiratory distress, diminished air movement and able to speak in complete sentences; Absent rhonchi, wheezes or crackles Cardiac: Present S1/S2, Tachycardia and radial pulses present GI: Present soft and distention; Absent tenderness or guarding Skin: Present intact; Absent cyanosis or jaundice Neuro: Present alert, awake and oriented x 3 Extremities: Present normal inspection; Absent clubbing or cyanosis Psychiatric: Present normal affect and cooperative Meds Home Medications and Allergies Home Medications ?Medication ?Instructions ?Recorded ?Confirmed ?Type No Known Home Medications 03/31/24 03/31/24 History New Prescriptions to Start Prescriptions: Allergies Allergy/AdvReac Type Severity Reaction Status Date / Time No Known Allergies Allergy Verified 03/31/24 15:12 Results Laboratory Findings 04/02/24 05:34 04/02/24 05:34 Abnormal lab findings: Abnormal Labs 03/31/24 03/31/24 03/31/24 08:53 09:00 11:45 RBC 4.49 L Hgb 13.7 L MCV 98.0 H MCHC 31.1 L [place] % (Auto) 11.2 H VBG pCO2 62.9 H VBG HCO3 36.5 H VBG Total CO2 38.4 H VBG Base Excess 11.3 H Chloride 97 L Carbon Dioxide 37 H BUN 21 H Glucose POC Glucose AST 71 H ALT 98 H Ammonia < 9 L C-Reactive Protein 106.3 H NT-Pro-B Natriuret Pep 1070 H Globulin 3.3 H TSH > 100.00 H Thyroxine (T4) 1.2 L Free T3 0.8 L Total T3 <20 L U Marijuana (THC) Screen Positive H 03/31/24 03/31/24 04/01/24 16:42 22:02 05:23 RBC 4.37 L Hgb 13.5 L MCV 96.1 H MCHC [place] % (Auto) 10.0 H VBG pCO2 VBG HCO3 VBG Total CO2 VBG Base Excess Chloride 94 L Carbon Dioxide 40 H BUN 23 H Glucose 110 H POC Glucose 156 H 134 H AST ALT Ammonia C-Reactive Protein NT-Pro-B Natriuret Pep Globulin TSH Thyroxine (T4) Free T3 Total T3 U Marijuana (THC) Screen 04/02/24 05:34 RBC 4.40 L Hgb 13.7 L MCV 98.2 H MCHC 31.7 L [place] % (Auto) 9.8 H VBG pCO2 VBG HCO3 VBG Total CO2 VBG Base Excess Chloride 94 L Carbon Dioxide 39 H BUN 27 H Glucose 111 H POC Glucose AST ALT Ammonia C-Reactive Protein NT-Pro-B Natriuret Pep Globulin TSH Thyroxine (T4) Free T3 Total T3 U Marijuana (THC) Screen Assessment and Plan *Assessment and plan (1) Morbid obesity with BMI of 40.0-44.9, adult: Status: Chronic Category: Medical Code(s): E66.01 - Morbid (severe) obesity due to excess calories; Z68.41 - Body mass index [BMI] 40.0-44.9, adult (2) Nocturnal hypoxemia due to obesity: Status: Acute Category: Medical Code(s): E66.9 - Obesity, unspecified; G47.36 - Sleep related hypoventilation in conditions classified elsewhere (3) Smoking greater than 30 pack years: Status: Acute Category: Social Hx Code(s): F17.210 - Nicotine dependence, cigarettes, uncomplicated Plan Mr. 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 Afebrile. Hemodynamically stable. No evidence of leukocytosis. Labs significant for significant with TSH greater than 100 upon admission. Low T3-T4. Thyroid ultrasound atrophy bilateral thyroid nodules Blood gas, venous upon admission chronic hypercarbic respiratory failure compensated with a pH of 7.38 and pCO2 of 62. Comprehensive respiratory viral PCR panel negative CTA upon admission obvious evidence of pulmonary embolism. No dense consolidation changes to bilateral lower lobe bronchial thickening and mucous plugging noted. No significant emphysematous changes appreciated. STOP-BANG score 6, high risk for sleep apnea. Admits snoring, witnessed apnea episodes, fatigue, daytime somnolence and fatigue. Neck circumference greater than 50 cm. Significant nocturnal desaturations noted. Plan: -Nocturnal desaturations likely from sleep apnea. Continue oxygen supplementation to maintain O2 saturation goal of 90% and above. Will schedule outpatient in-house polysomnography testing. Will provide patient with a cost estimate prior to discharge. We will work with the [facility] to discharge patient on auto CPAP pending polysomnography evaluation given his high risk of sleep apnea in the setting of his most recent fall episode.
[2024-04-02] MEDS: ENOXAPARIN 40MG/0.4ML SYRINGE 40 MG SUBCUT (09:53)
[2024-04-02] MEDS: LEVOTHYROXINE SODIUM 100 MCG VIAL 150 MCG IV (09:53)
[2024-04-02] MEDS: BUMETANIDE 1MG/4ML VIAL 1 MG IV (09:53)
[2024-04-02] MEDS: DOCUSATE SODIUM 100 MG CAPSULE PO (09:55)
--- NOTE | 2024-04-02 14:43 | CARE MANAGER ---
Provided patient and girlfriend with private pay cost of CPAP and Oxygen so they could be prepared at discharge. Discussed that they would use [place]. Verbalized understanding.
--- NOTE | 2024-04-02 17:48 | P.PN_ITS ---
Subjective *Date: 04/02/24 *Time: 17:48 Interval history: Patient feeling much better today, alert and conversational. Will continue IV levothyroxine, transition to oral tomorrow. Continue to T3 supplementation as well to tomorrow. Pulmonology following, will set up sleep study and hopefully CPAP for discharge. Anticipate discharge in the morning as patient continues to get better. Exam Data for Last 24 hours Vital signs and Labs for Last 24 Hours: Temp Pulse Resp BP Pulse Ox O2 Del Method O2 Flow Rate 97.6 F 72 18 103/76 L 92 L Nasal Cannula 2 04/02/24 16:00 04/02/24 16:00 04/02/24 16:00 04/02/24 16:00 04/02/24 16:00 04/02/24 17:00 04/02/24 17:00 FiO2 40 04/01/24 00:27 Laboratory Results - last 24 hr 04/02/24 05:34: WBC 7.9, RBC 4.40 L, Hgb 13.7 L, Hct 43.2, MCV 98.2 H, MCH 31.1, MCHC 31.7 L, RDW 15.0, Plt Count 198, MPV 10.0, Neut % (Auto) 56.8, Lymph % (Auto) 29.3, [place] % (Auto) 9.8 H, Eos % (Auto) 2.3, Baso % (Auto) 1.0, Neut # (Auto) 4.5, Lymph # (Auto) 2.3, [place] # (Auto) 0.8, Eos # (Auto) 0.2, Baso # (Auto) 0.1, Sodium 138, Potassium 3.7, Chloride 94 L, Carbon Dioxide 39 H, Anion Gap 8.7, BUN 27 H, Creatinine 1.10, Estimated Creat Clear 118, Estimated GFR 68, Est GFR ( Amer) 83, Glucose 111 H, Calcium 8.4, Magnesium 2.1, Total Bilirubin 0.2, AST 42, ALT 61, Alkaline Phosphatase 67, Total Protein 6.8, Albumin 3.8, Globulin 3.0, Albumin/Globulin Ratio 1.3 I & O for Last 24 hours: Intake & Output 03/30/24 03/31/24 04/01/24 04/02/24 23:59 23:59 23:59 23:59 Intake Total 980 / 980 1550 / 2050 1170 / 1170 Output Total 1700 / 1700 900 / 900 900 / 900 Balance -720 / -720 650 / 1150 270 / 270 Weight 129.416 kg 129 kg 117 kg Constitutional Constitutional: no acute distress and obese *Routine HEENT Exam Head: Present normocephalic Eye: Present EOMI and PERRL ENT: Present mucous membranes moist *Routine Neck Exam Neck: Present supple; Absent lymphadenopathy *Routine Respiratory Exam Respiratory: Present CTA bilaterally *Routine Cardiovascular Exam Cardiovascular: Present RRR *Routine Abdominal Exam Abdominal: Present soft and normoactive bowel sounds; Absent tenderness *Routine Extremities Exam Extremities: Absent cyanosis, clubbing or edema *Routine Skin Exam Skin: Present warm; Absent rash *Routine Neurological Exam Neurological: Present alert and oriented X3 Assessment and Plan *Assessment and plan (1) Morbid obesity with BMI of 40.0-44.9, adult: Status: Chronic Category: Medical Code(s): E66.01 - Morbid (severe) obesity due to excess calories; Z68.41 - Body mass index [BMI] 40.0-44.9, adult (2) Nocturnal hypoxemia due to obesity: Status: Acute Category: Medical Code(s): E66.9 - Obesity, unspecified; G47.36 - Sleep related hypoventilation in conditions classified elsewhere (3) Smoking greater than 30 pack years: Status: Acute Category: Social Hx Code(s): F17.210 - Nicotine dependence, cigarettes, uncomplicated (4) Severe hypothyroidism: Status: Acute Category: Medical Code(s): E03.9 - Hypothyroidism, unspecified (5) Altered mental status: Status: Acute Category: Medical Code(s): R41.82 - Altered mental status, unspecified (6) Acute metabolic encephalopathy: Status: Acute Category: Medical Code(s): G93.41 - Metabolic encephalopathy (7) Acute exacerbation of chronic obstructive pulmonary disease: Status: Acute Category: Medical Code(s): J44.1 - Chronic obstructive pulmonary disease with (acute) exacerbation (8) CHF (congestive heart failure): Status: Acute Category: Medical Code(s): I50.9 - Heart failure, unspecified Plan Mr. Lawson is a 59-year-old male who presented with confusion and weakness, reports that he slept all weekend. Workup in the ER with confusion and TSH greater than 100. Appears to have severe hypothyroidism. Not quite myxedema as he is maintaining blood pressure, electrolytes are normal, maintaining body temperature. High risk for decompensation however. Discussed case with ER physician, request admission for aggressive management and thyroid hormone replacement along with further workup. I agreed to admit for further care. Hypothyroid Metabolic encephalopathy - Initial TSH greater than 100, liver enzymes normal with bili 0.5, AST and ALT 71 and 98 respectively. Maintaining body temperature. Normotensive. No signs of anemia with hemoglobin of 13.7. - Continue IV levothyroxine 150 mcg daily. Transition to oral levothyroxine tomorrow. - Continue liothyronine (T3). Pharmacy ordering. Will administer 20 mcg p.o. once followed by 5 mcg every 8 hours for 3 days until mentation improving. Anticipate discharge continuing tomorrow. - Free T4 1.2. Free T3 low 0.8, total T3 less than 20. ? Patient feels significantly better today, alert, oriented, conversational. - Thyroid antibodies pending, ordered anti-TPA and [id number]-roaqiqi-[id number] hormone. - Thyroid ultrasound obtained showing atrophic thyroid gland. ? Follow-up TSH, free T4, T3 in the morning. Will need repeat TFTs in 4 to 6 weeks with close follow-up with endocrinology. ? Anticipate discharge in the morning as patient continues to improve. #Suspected chronic hypoxic respiratory failure ? Patient requires 2 L nasal cannula, desaturating to 88% on room air. Patient had a longstanding history of smoking, 98-iini-axlb smoker. Likely has underlying COPD. ? Continue 2 L nasal cannula. ? Initial BNP slightly elevated to 1000, given diuresis without significant improvement in hypoxia. ECHO reveals normal biventricular function without other significant abnormalities. ? Will follow-up with pulmonology on discharge. Will need sleep study after discharge to evaluate for sleep apnea. Continue CPAP while admitted. Pulmonology consulted, will set patient up with sleep study. Ordering CPAP to be ready upon discharge if possible Morbid obesity complicates all aspects of his care Full code Regular diet Lovenox 40 mg subcu daily
[2024-04-03] VITALS (11 sets, daily range): BP systolic 113–117; BP diastolic 56–73; PULSE 60–92; RESP 16–19; TEMP 36.6–37; O2SAT 86–95; BMI 39.8
[2024-04-03] MEDS: LIOTHYRONINE 5 MCG 1 EACH PO ×2 (03:07→10:31)
--- NOTE | 2024-04-03 04:22 | PC.NURSE ---
59 YO male pt is A/O X 4. He denies pain, discomfort or SOA this shift. Pt with occasional dry cough. Maintaining sats above 90 % on 1.5-2 liters/nc [place]. Compliant with CPAP while sleeping. Pt tolerating regular diet. He is able to ambulate to BR with only standby assist. SO remained at bedside throughout shift. VSS for pt
[2024-04-03] MEDS: IPRATROPIUM/ALBUTEROL 3 ML NEB IH ×2 (06:02→10:58)
[2024-04-03] MEDS: FLUTICASONE/UMECLIDIN/VILANTER 100/62.5/25MCG INHALER 1 PUFF IH (06:02)
[2024-04-03] MEDS: LEVOTHYROXINE 150MCG (0.15MG)TAB 150 MCG PO (06:13)
[2024-04-03 06:49] LABS: Alanine Aminotransferase 54 U/L (12-78); Albumin Level 3.8 g/dl (3.5-5.0); Albumin/Globulin Ratio 1.3 (1.1-1.8); Alkaline Phosphatase 72 U/L (38-126); Anion Gap 9.8 mEq/L (5-15); Aspartate Amino Transferase 48 U/L (17-59); Bilirubin,Total 0.2 mg/dl (0.2-1.3); Blood Urea Nitrogen 29 mg/dl (9-20); Calcium 8.6 mg/dl (8.4-10.2); Carbon Dioxide 37 mmol/L (22.0-30.0); Chloride 96 mmol/L (98-107); Creatinine Clearance Estimated 113 mL/min (50-200); Estimated Glomerular Filt Rate 62 ml/min (>60); GFR (African American) 75 ML/MIN (>60); Glucose 102 mg/dl (74-100); Potassium 3.8 mmoL/L (3.5-5.1); Sodium 139 mmol/L (136-145); Total Protein,Serum 6.8 g/dl (6.3-8.2)
[2024-04-03] MEDS: DOCUSATE SODIUM 100 MG CAPSULE PO (08:14)
[2024-04-03] MEDS: ENOXAPARIN 40MG/0.4ML SYRINGE 40 MG SUBCUT (08:14)
[2024-04-03 08:15] LABS: Thyroid Peroxidase Antibodies >600 IU/mL (0-34)
--- NOTE | 2024-04-03 09:36 | EXP.PULM.PN ---
Subjective *Date: 04/03/24 *Time: 11:24 Interval history: No acute respiratory vents overnight. Patient admits continued improvement in his respiratory symptoms. Pulmonology Exam Inpatient Vital signs and Labs for Last 24 Hours: Temp Pulse Resp BP Pulse Ox O2 Del Method O2 Flow Rate 98.1 F 81 19 117/73 94 L Nasal Cannula 2 04/03/24 07:39 04/03/24 07:39 04/03/24 07:39 04/03/24 07:39 04/03/24 07:39 04/03/24 08:37 04/03/24 08:37 FiO2 40 04/03/24 06:05 Laboratory Results - last 24 hr 04/02/24 05:34: Thyroid Peroxidase Ab >600 H 04/03/24 06:05: Sodium 139, Potassium 3.8, Chloride 96 L, Carbon Dioxide 37 H, Anion Gap 9.8, BUN 29 H, Creatinine 1.20, Estimated Creat Clear 113, Estimated GFR 62, Est GFR ( Amer) 75, Glucose 102 H, Calcium 8.6, Total Bilirubin 0.2, AST 48, ALT 54, Alkaline Phosphatase 72, Total Protein 6.8, Albumin 3.8, Globulin 3.0, Albumin/Globulin Ratio 1.3, TSH 70.60 H D Temp Pulse Resp BP Pulse Ox O2 Del Method O2 Flow Rate 98.1 F 70 13 115/76 90 L Nasal Cannula 2 04/02/24 07:56 04/02/24 08:00 04/02/24 08:00 04/02/24 08:00 04/02/24 08:08 04/02/24 08:08 04/02/24 08:08 FiO2 40 04/01/24 00:27 Laboratory Results - last 24 hr 03/31/24 09:00: Free T3 0.8 L, Total T3 <20 L, Chlamy pneumoniae PCR Not detected, Adenovirus (PCR) Not detected, B. pertussis DNA (PCR) Not detected, Coronavirus OC43 (PCR) Not detected, Coronavirus HKU1 (PCR) Not detected, Coronavirus 229E (PCR) Not detected, SARS-CoV-2 (PCR) Not detected, Coronavirus NL63 (PCR) Not detected, Human Metapneumovir PCR Not detected, Influenza A (H1) PCR Not detected, Influ A (H1N1/09) PCR Not detected, Influenza A (H3) PCR Not detected, Influenza Type A (PCR) Not detected, Influenza Type B (PCR) Not detected, M. pneumoniae (PCR) Not detected, Parainfluenza 1 (PCR) Not detected, Parainfluenza 2 (PCR) Not detected, Parainfluenza 3 (PCR) Not detected, Parainfluenza 4 (PCR) Not detected, RSV (PCR) Not detected, Entero/Rhino (PCR) Not detected 04/02/24 05:34: WBC 7.9, RBC 4.40 L, Hgb 13.7 L, Hct 43.2, MCV 98.2 H, MCH 31.1, MCHC 31.7 L, RDW 15.0, Plt Count 198, MPV 10.0, Neut % (Auto) 56.8, Lymph % (Auto) 29.3, [place] % (Auto) 9.8 H, Eos % (Auto) 2.3, Baso % (Auto) 1.0, Neut # (Auto) 4.5, Lymph # (Auto) 2.3, [place] # (Auto) 0.8, Eos # (Auto) 0.2, Baso # (Auto) 0.1, Sodium 138, Potassium 3.7, Chloride 94 L, Carbon Dioxide 39 H, Anion Gap 8.7, BUN 27 H, Creatinine 1.10, Estimated Creat Clear 118, Estimated GFR 68, Est GFR ( Amer) 83, Glucose 111 H, Calcium 8.4, Magnesium 2.1, Total Bilirubin 0.2, AST 42, ALT 61, Alkaline Phosphatase 67, Total Protein 6.8, Albumin 3.8, Globulin 3.0, Albumin/Globulin Ratio 1.3 I & O for Labs for Last 24 Hours: Intake & Output 03/31/24 04/01/24 04/02/24 04/03/24 23:59 23:59 23:59 23:59 Intake Total 980 / 980 1550 / 2050 1530 / 1530 420 / 420 Output Total 1700 / 1700 900 / 900 900 / 900 0 / 0 Balance -720 / -720 650 / 1150 630 / 630 420 / 420 Weight 285 lb 5 oz 284 lb 6.341 oz 257 lb 15.053 oz 268 lb 14.4 oz Intake & Output 03/30/24 03/31/24 04/01/24 04/02/24 23:59 23:59 23:59 23:59 Intake Total 980 / 980 1550 / 2050 835 / 835 Output Total 1700 / 1700 900 / 900 400 / 400 Balance -720 / -720 650 / 1150 435 / 435 Weight 285 lb 5 oz 284 lb 6.341 oz 257 lb 15.053 oz Constitutional: Present moderate distress Head: Present normocephalic and atraumatic ENT: Present normal exam, normal oropharynx and mucous membranes moist Neck: Present normal inspection and full ROM Respiratory: Present respiratory distress, diminished air movement and able to speak in complete sentences; Absent rhonchi, wheezes or crackles Cardiac: Present S1/S2, Tachycardia and radial pulses present GI: Present soft and distention; Absent tenderness or guarding Skin: Present intact; Absent cyanosis or jaundice Neuro: Present alert, awake and oriented x 3 Extremities: Present normal inspection; Absent clubbing or cyanosis Psychiatric: Present normal affect and cooperative Assessment and Plan *Assessment and plan (1) Morbid obesity with BMI of 40.0-44.9, adult: Status: Chronic Category: Medical Code(s): E66.01 - Morbid (severe) obesity due to excess calories; Z68.41 - Body mass index [BMI] 40.0-44.9, adult (2) Nocturnal hypoxemia due to obesity: Status: Acute Category: Medical Code(s): E66.9 - Obesity, unspecified; G47.36 - Sleep related hypoventilation in conditions classified elsewhere (3) Smoking greater than 30 pack years: Status: Acute Category: Social Hx Code(s): F17.210 - Nicotine dependence, cigarettes, uncomplicated Plan Mr. 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 Afebrile. Hemodynamically stable. No evidence of leukocytosis. Labs significant for significant with TSH greater than 100 upon admission. Low T3-T4. Thyroid ultrasound atrophy bilateral thyroid nodules Blood gas, venous upon admission chronic hypercarbic respiratory failure compensated with a pH of 7.38 and pCO2 of 62. Comprehensive respiratory viral PCR panel negative CTA upon admission obvious evidence of pulmonary embolism. No dense consolidation changes to bilateral lower lobe bronchial thickening and mucous plugging noted. No significant emphysematous changes appreciated. STOP-BANG score 6, high risk for sleep apnea. Admits snoring, witnessed apnea episodes, fatigue, daytime somnolence and fatigue. Neck circumference greater than 50 cm. Significant nocturnal desaturations noted. Interval update: No acute respiratory vents overnight. Continue to be needing nasal cannula oxygen supplementation. Continue to receive levothyroxine and levothyroxine supplementation. Continue to receive Trelegy 100 inhaler Plan: -Nocturnal desaturations likely from sleep apnea. -Continue oxygen supplementation to maintain O2 saturation goal of 90% and above. -Currently using CPAP while asleep. Continue to show nocturnal desaturations. Continue CPAP at 12. Likely discharged home on Auto CPAP. We will work with the [facility] to discharge patient on auto CPAP 6-16 pending polysomnography evaluation given his high risk of sleep apnea in the setting of his most recent fall episode. Will schedule outpatient in-house polysomnography testing. Will provide patient with a cost estimate prior to discharge.
[2024-04-03 09:41] LABS: Free T4 (Free Thyroxine) 0.55 ng/dl (0.78-2.19)
--- NOTE | 2024-04-03 11:27 | PC.NURSE ---
room air saturation while sitting up in bed is 86%.
--- NOTE | 2024-04-03 12:14 | P.DS_ITS ---
General Admission date:: 03/31/24 HPI HPI HPI: Lulu is a 59-year-old male with no significant past medical history. Presented to the ER with complaint of being fatigued all weekend. Sounds like he was celebrating his birthday and was drinking alcohol and smoking marijuana. Slept for more than usual however. Was confused, did not know the day of the week. Extremely weak per her spouse. States he has been more tired over the past month. Denies any betsy syncope, loss of consciousness, nausea or vomiting. On arrival to the ER, negative for fever. Denies any chest pain. Does have oxygen requirement however. Workup showing severe hypothyroid. Medicine consulted for admission and further management. On my evaluation, patient is pleasant and states he feels little better since receiving IV levothyroxine. Tolerating 4 L nasal cannula oxygen at this time to maintain sats in the low 90s. Answering questions slowly but appropriately. Denies any rash, lower extremity edema, GI symptoms, constipation, states he does not see a doctor regularly and is on no medications at this time.. Hospital Course Hospital Course Hospital Course: Mr. Lawson is a 59-year-old male who presented with confusion and weakness. Workup in the ER with confusion and TSH greater than 100. Appeared to have severe hypothyroidism. Not quite myxedema as he is maintaining blood pressure, electrolytes are normal, maintaining body temperature. Hypothyroid Metabolic encephalopathy, resolved - Initial TSH greater than 100, with acute metabolic encephalopathy. Low free T4, free T3, total T4. ? Gradually improved with IV levothyroxine, and liothyronine supplementation. Back to baseline mentation. Alert and oriented x 4. ? Elevated thyroid peroxidase antibodies greater than 600. Normal TSH antibodies. - Thyroid ultrasound obtained showing atrophic thyroid gland. ? Discharged with levothyroxine 150 mcg. Advised to have a close follow-up with PCP, and to recheck TFTs in 4 to 6 weeks. #Suspected chronic hypoxic respiratory failure #Suspected sleep apnea #Suspected COPD, [id number] former smoker ? Patient requires 2 L nasal cannula, desaturating to 88% on room air. Patient had a longstanding history of smoking, [id number] smoker. Likely has underlying COPD. ? Saturating 86% on room air at rest, requiring 2 L nasal cannula for appropriate saturations. ? Patient did have nighttime desaturations on room air. Likely underlying sleep apnea. ? Pulmonology consulted, discharged with CPAP with settings of 08/18. Also recommended Trelegy 100. Will follow-up with pulmonology for sleep study. Morbid obesity complicates all aspects of his care Total time spent on discharge: 32 minutes on chart review, counseling, documentation, and direct care with patient. Exam Data for Last 24 hours Vital signs and Labs for Last 24 Hours: Temp Pulse Resp BP Pulse Ox O2 Del Method O2 Flow Rate 97.8 F 74 19 113/66 86 L Room Air 2 04/03/24 11:04/03/24 11:04/03/24 11:04/03/24 11:29 04/03/24 11:04/03/24 11:04/03/24 10:59 FiO2 40 04/03/24 06:05 Laboratory Results - last 24 hr 04/02/24 05:34: Thyroid Peroxidase Ab >600 H 04/03/24 06:05: Sodium 139, Potassium 3.8, Chloride 96 L, Carbon Dioxide 37 H, Anion Gap 9.8, BUN 29 H, Creatinine 1.20, Estimated Creat Clear 113, Estimated GFR 62, Est GFR ( Amer) 75, Glucose 102 H, Calcium 8.6, Total Bilirubin 0.2, AST 48, ALT 54, Alkaline Phosphatase 72, Total Protein 6.8, Albumin 3.8, Globulin 3.0, Albumin/Globulin Ratio 1.3, TSH 70.60 H D, Free T4 0.55 L I & O for Last 24 hours: Intake & Output 03/31/24 04/01/24 04/02/24 04/03/24 23:59 23:59 23:59 23:59 Intake Total 980 / 980 1550 / 2050 1530 / 1530 420 / 420 Output Total 1700 / 1700 900 / 900 900 / 900 0 / 0 Balance -720 / -720 650 / 1150 630 / 630 420 / 420 Weight 129.416 kg 129 kg 117 kg 121.971 kg Constitutional Constitutional: no acute distress and obese *Routine HEENT Exam Head: Present normocephalic Eye: Present EOMI and PERRL ENT: Present mucous membranes moist *Routine Neck Exam Neck: Present supple; Absent lymphadenopathy *Routine Respiratory Exam Respiratory: Present CTA bilaterally *Routine Cardiovascular Exam Cardiovascular: Present RRR *Routine Abdominal Exam Abdominal: Present soft and normoactive bowel sounds; Absent tenderness *Routine Extremities Exam Extremities: Absent cyanosis, clubbing or edema *Routine Skin Exam Skin: Present warm; Absent rash *Routine Neurological Exam Neurological: Present alert and oriented X3 Results Data Completed and Pending Labs on day of discharge: Labs from last 24 hours 04/03/24 04/02/24 06:05 05:34 Sodium 139 Potassium 3.8 Chloride 96 L Carbon Dioxide 37 H Anion Gap 9.8 BUN 29 H Creatinine 1.20 Estimated Creat Clear 113 Estimated GFR 62 Est GFR ( Amer) 75 Glucose 102 H Calcium 8.6 Total Bilirubin 0.2 AST 48 ALT 54 Alkaline Phosphatase 72 Total Protein 6.8 Albumin 3.8 Globulin 3.0 Albumin/Globulin Ratio 1.3 TSH 70.60 H D Free T4 0.55 L Thyroid Peroxidase Ab >600 H DS: Diagnosis Discharge Diagnosis (1) Morbid obesity with BMI of 40.0-44.9, adult: Status: Chronic Code(s): E66.01 - Morbid (severe) obesity due to excess calories; Z68.41 - Body mass index [BMI] 40.0-44.9, adult (2) Nocturnal hypoxemia due to obesity: Status: Acute Code(s): E66.9 - Obesity, unspecified; G47.36 - Sleep related hypoventilation in conditions classified elsewhere (3) Smoking greater than 30 pack years: Status: Acute Code(s): F17.210 - Nicotine dependence, cigarettes, uncomplicated Meds Home Medications and Allergies Home Medications ?Medication ?Instructions ?Recorded ?Confirmed ?Type albuterol sulfate 0.63 mg/3 mL 0.63 mg inhalation Q4H 04/09/24 04/09/24 History solution for nebulization fluticasone fur. 100 mcg-umeclid 1 inh inhalation DAILY 30 days #60 04/09/24 04/09/24 Rx 62.5 mcg-vilant 25 mcg ea inhalat.powder (Trelegy Ellipta) levothyroxine 150 mcg tablet 150 mcg PO DAILYDM 30 days #30 tabs 04/09/24 04/09/24 Rx (Synthroid) New Prescriptions to Start Prescriptions: Allergies Allergy/AdvReac Type Severity Reaction Status Date / Time No Known Allergies Allergy Verified 04/09/24 10:15 Discharge Plan Disposition Patient Disposition: Home, Self-Care Condition: Fair Discharge Order Discharge Orders: Discharge Order (Routine); Ordered 04/03/24 Ordered By: Guzman Casey Follow up Plan Follow up with: Martin Roman APRN [Nurse Practitioner] - Enter time for follow up Shey Carrasquillo MD [Physician] - 05/05/24 1:00 pm Prescriptions/Medication Reconciliation: No Action albuterol sulfate 0.63 mg/3 mL solution for nebulization 0.63 mg inhalation Q4H levothyroxine [Synthroid] 150 mcg tablet 150 mcg PO DAILYDM 30 Days Qty: 30 3RF Trelegy Ellipta 100-62.5-25 mcg blister with device 1 inh inhalation DAILY 30 Days Qty: 60 3RF Problem Reconciliation Problems Reviewed?: Yes Patient Discharge Instructions Stand Alone Forms: [facility] Work Release Patient Instructions: DI for Heart Failure, DI for Chronic Obstructive Pulmonary Disease, Low-Sodium Diet, DI for Hypothyroidism, DI for Altered Mental Status Print Language: Monegasque Providers Primary Care Provider: Provider,Referral Admit Provider: Yayo Lindquist Attending Provider: Yayo Lindquist
--- NOTE | 2024-04-03 13:39 | CARE MANAGER ---
Addendum entered by Bisi Rowe RN 04/03/24 13:40: Patient Choice verbally obtained for [facility]. Portable O2 will be delivered to bedside prior to discharge. Original Note: Patient discharging home today with supplemental O2 and Cpap.
[2024-04-04 07:10] LABS: Thyroid Stimulating Immunoglob 0.22 IU/L (0.00-0.55)
--- NOTE | 2024-04-04 10:14 | SW/DCPLANNER ---
Spoke with patient on the phone. Patient stated that he is good. Patient stated that he is aware of his upcoming appointments. Patient stated that he got his new medicine from clinic pharmacy. Patient stated that he has no concerns or questions at this time. Leora Waller
== END 2024-04-03 13:44 | disposition home or self-care (01) | DRG 71 ==
LOC: ER 11:28 → ICU 12:19 → 2ND 04-02 14:49
PROVIDERS: Student in an Organized Health Care Education/Training Program; Admitting Provider Internal Medicine Adolescent Medicine; Emergency Provider Emergency Medicine; Visit Provider Internal Medicine Adolescent Medicine
DX: G93.41 Metabolic encephalopathy (principal); J96.11 Chronic respiratory failure with hypoxia; Z68.41 Body mass index [BMI] 40.0-44.9, adult; E03.9 Hypothyroidism, unspecified; E66.01 Morbid (severe) obesity due to excess calories; F17.210 Nicotine dependence, cigarettes, uncomplicated; G47.36 Sleep related hypoventilation in conditions classified elsewhere
CPT/HCPCS: 36415; 70450; 70496; 70498; 71045; 71275; 72125; 76536; 80053; 80307; 80320; 81001; 82140; 82803; 82962; 83036; 83735; 83880; 84145; 84436; 84439; 84443; 84445; 84480; 84481; 84484; 85025; 86140; 86376; 86803; 87389; 87633; 87636; 93005; 93306; 94640; 94660; 94761; 99291; G0238; J1650; J1939; J1940; J2919; J7620; Q9967

== ENCOUNTER 2024-05-13 11:12 | Outpatient (CLI) | payer OTHER, SELFPAY ==
--- NOTE | 2024-05-13 11:13 | NM_ITS ---
APPROVED REPORT Exam: Nuclear Stress Test Indication: soa..fatigue Patient Location: Outpatient Stress Tech: Virginia Garibay [place] Tech:TOM Scott, RT (R)(N) Ht: 5 ft 11 in Wt: 265 lbs HR: 71 bpm BP: 138/84 mmHg BSA: 2.38 m2 TID: 1.08 BMI: 36.9 History: soa..fatigue Procedure: Patient received 0.4 mg of intravenous Lexiscan, resting heart rate 71 bpm, resting blood pressure 138/84 mmHg, with Lexiscan maximum heart rate achieved was 98 bpm which is 85 % of the maximum predicted heart rate and blood pressure was 141/85 mmHg. With Lexiscan, patient denied any complaint of chest pain. Cardiac Stress and Resting SPECT Images: Cardiac Stress and Resting SPECT images were obtained using technetium 99m Myoview 31.8 mCi stress and 10.58 mCi at rest. Raw images demonstrate significant soft tissue overlap with the cardiac borders. This may affect the diagnostic interpretation of the study findings. Resting and stress imaging in supine positions demonstrate a medium sized, moderate, tapered fixed perfusion defect in the basal to mid inferior LV ken. This is no longer visualized with prone stress imaging. Findings are suggestive of diaphragmatic attenuation. Gated imaging demonstrates normal global and regional LV systolic function. LVEF is calculated at 60%. Conclusion: Diaphragmatic attenuation is present. No evidence of fixed or reversible perfusion defects. Gated imaging demonstrates normal global and regional LV systolic function. LVEF is calculated at 60%. Electronically signed by : Sharmila Artis MD 05/14/2024 12:50:16
[2024-05-13] MEDS: ISOTOPE MYOVIEW (PER STUDY) 1 DOSE IV (13:30)
[2024-05-13] MEDS: SODIUM CHLORIDE 0.9% 10ML SYR (RAD ONLY) 10 ML IV ×2 (13:30)
[2024-05-13] MEDS: REGADENOSON 0.4MG/5ML SYRINGE 0.4 MG IV (13:30)
== END 2024-05-13 23:59 | disposition home or self-care (01) ==
LOC: RAD 11:13
PROVIDERS: PCP Nurse Practitioner Family; Visit Provider Physician Assistant
DX: R07.89 Other chest pain (principal); R06.09 Other forms of dyspnea
CPT/HCPCS: 78452; 93017; 93018; A9502; J2785

== ENCOUNTER → 2024-05-19 07:25 | Outpatient (CLI) | payer OTHER, SELFPAY | LOC: SL 07:27 | PROVIDERS: PCP Internal Medicine Pulmonary Disease; Visit Provider Internal Medicine Pulmonary Disease | DX: G47.33 Obstructive sleep apnea (adult) (pediatric) (principal); R06.83 Snoring | CPT/HCPCS: G0399 ==

== ENCOUNTER 2024-05-20 10:40 | Outpatient (CLI) | payer OTHER, SELFPAY ==
[2024-05-20 11:12] LABS: Basophils # 0.1 K/mm3 (0-0.2); Basophils % 0.7 % (0.1-2.0); Eosinophils # 0.2 K/mm3 (0.0-0.4); Eosinophils % 3.4 % (0.1-12.0); Hematocrit 45.5 % (42.0-52.0); Hemoglobin 14.9 g/dL (14.1-18.0); Lymphocytes # 2.1 K/mm3 (0.7-4.5); Lymphocytes % 29.7 % (10-50); Mean Corpuscular HGB Conc 32.7 g/dL (31.8-35.4); Mean Corpuscular Hemoglobin 30.5 pg (27.0-31.2); Mean Corpuscular Volume 93.2 fl (80-94); Mean Platelet Volume 9.9 fl (7.4-10.4); Monocytes # 0.8 K/mm3 (0.1-1.0); Monocytes % 10.8 % (1.7-9.3); Neutrophils # 3.9 K/mm3 (1.8-7.8); Neutrophils % 54.8 % (37.0-80.0); Platelet Count 208 K/mm3 (142-424); Red Blood Count 4.88 M/mm3 (4.60-6.20); Red Cell Distribution Width 13.5 % (11.5-17.5); White Blood Count 7.1 K/mm3 (4.8-10.8)
[2024-05-20 12:07] LABS: Alanine Aminotransferase 50 U/L (12-78); Albumin/Globulin Ratio 1.4 (1.1-1.8); Alkaline Phosphatase 60 U/L (38-126); Anion Gap 9.4 mEq/L (5-15); Aspartate Amino Transferase 35 U/L (17-59); Bilirubin,Total 0.2 mg/dl (0.2-1.3); Blood Urea Nitrogen 20 mg/dl (9-20); Calcium 9.2 mg/dl (8.4-10.2); Carbon Dioxide 29 mmol/L (22.0-30.0); Chloride 104 mmol/L (98-107); Chol/HDL Ratio 6.6 (1-3.5); Cholesterol 192 mg/dl (140-200); Estimated Glomerular Filt Rate 68 ml/min (>60); GFR (African American) 83 ML/MIN (>60); Globulin 2.8 g/dL (1.3-3.2); Glucose 97 mg/dl (74-100); HDL Cholesterol 29 mg/dl (40-60); Potassium 4.4 mmoL/L (3.5-5.1); Sodium 138 mmol/L (136-145); Total Protein,Serum 6.8 g/dl (6.3-8.2); Triglycerides 126 mg/dl (30-150); VLDL Cholesterol 25 mg/dL (0-40)
[2024-05-20 12:18] LABS: Direct LDL Cholesterol 125.16 mg/dL (100-129)
[2024-05-20 12:28] LABS: 25-OH Vitamin D, Total 22.2 ng/mL (30-100)
[2024-05-20 12:40] LABS: Prostate Specific Ag Screen 3.8 ng/ml (0.0-4.0); Thyroid Stimulating Hormone 4.48 uIU/mL (0.465-4.68)
== END 2024-05-20 23:59 | disposition home or self-care (01) ==
LOC: LAB 10:41
PROVIDERS: PCP Nurse Practitioner Family; Visit Provider Nurse Practitioner Family
DX: Z12.5 Encounter for screening for malignant neoplasm of prostate (principal); E03.9 Hypothyroidism, unspecified; E66.01 Morbid (severe) obesity due to excess calories; Z68.41 Body mass index [BMI] 40.0-44.9, adult; J44.9 Chronic obstructive pulmonary disease, unspecified; E55.9 Vitamin D deficiency, unspecified; Z87.891 Personal history of nicotine dependence
CPT/HCPCS: 36415; 80053; 80061; 82306; 84443; 85025; G0103

== ENCOUNTER 2024-08-07 09:39 | Outpatient (CLI) | payer OTHER, SELFPAY ==
[2024-08-07 10:20] VITALS: PULSE 71; PULSE 72
[2024-08-07] MEDS: ALBUTEROL 0.083% 2.5 MG/3 ML NEB IH (10:20)
== END 2024-08-07 23:59 | disposition home or self-care (01) ==
LOC: RT 09:39
PROVIDERS: PCP Nurse Practitioner Family; Visit Provider Internal Medicine Pulmonary Disease
DX: J44.9 Chronic obstructive pulmonary disease, unspecified (principal)
CPT/HCPCS: 94010; 94618; 94640; 94727; 94729

== ENCOUNTER 2025-02-10 09:27 | Outpatient (CLI) | payer OTHER, SELFPAY ==
[2025-02-10 10:10] VITALS: PULSE 67; PULSE 71
[2025-02-10] MEDS: ALBUTEROL 0.083% 2.5 MG/3 ML NEB IH (10:10)
== END 2025-02-10 23:59 | disposition home or self-care (01) ==
LOC: RT 09:28
PROVIDERS: PCP Nurse Practitioner Family; Visit Provider Internal Medicine Pulmonary Disease
DX: J44.9 Chronic obstructive pulmonary disease, unspecified (principal); R94.2 Abnormal results of pulmonary function studies
CPT/HCPCS: 94010; 94618; 94640